=== PATIENT | female | born 1940 | race Caucasian/White ===

== ENCOUNTER → 2017-07-07 | Outpatient (CLI) | payer OTHER ==
[~2017-07-07] MED LIST: AMIO200T PO; ASPI81 PO; BUTATAB6 PO; DIPH25CA PO; DIVA250T PO; DOCU1CAP39 PO; FERR325T20 PO; FURO1TAB60 PO; HYDR-3516 PO; IOHEXOL 350 MG/ML 10 ML VIAL (for RAD DIAG) IVCONTRAST ONE; LORA0.5T PO; MEDR4PAK PO; METO25TA3 PO; PANT40TA3 PO; PLAV75TA29 PO; POTA-163 PO; THERM PO; UMEC1AER INH
[2017-07-07 08:38] LABS: BLOOD, URINE SMALL (NEG); GLUCOSE,URINE NEG (NEG); HYALINE CAST, URINE 1 /lpf (RARE); KETONE, URINE NEG (NEG); NITRITE,URINE NEG (NEG); SQUAMOUS EPITHELIAL CELL URINE <1 /hpf (0-5); URINE COLOR LIGHT-YELLOW (YELLW/STRAW)
[2017-07-07 08:39] LABS: COMMENT (UR) CULTURE INDICATED; CULTURE IF INDICATED CULTURE INDICATED
[2017-07-07 09:00] LABS: BICARBONATE 27.6 MEQ/L (21.0-32.0); POTASSIUM 4.5 MEQ/L (3.5-5.1)
--- NOTE | 2017-07-07 10:11 | RADRPT ---
EXAM DATE/TIME: 07/07/2017 10:01 [facility] COMPARISON: No previous studies available for comparison. INDICATIONS : Evaluate for pneumonia, pneumothorax or communicable disease. Pre-op for Aortic valve replacement. MEDICAL HISTORY : None. SURGICAL HISTORY : None. ENCOUNTER: Initial ACUITY: 1 day PAIN SCORE: 0/10 LOCATION: Bilateral chest FINDINGS: A PA and lateral view of the chest shows the heart to be normal in size. Pulmonary vessels are unrema rkable. No acute infiltrate or effusion. Prior cement augmentation involving 3 thoracic vertebral bod ies. CONCLUSION: No acute disease. Avi Holt Jr., MD on July 07, 2017 at 10:08 Board Certified Radiologist. This report was verified electronically.
--- NOTE | 2017-07-07 11:19 | RADRPT ---
EXAM DATE/TIME: 07/07/2017 09:41 [facility] COMPARISON: No previous studies available for comparison. INDICATIONS : Pre-op for TAVR. IV CONTRAST: 100 cc Omnipaque 350 (iohexol) IV RADIATION DOSE: 42.77 CTDIvol (mGy) MEDICAL HISTORY : Cardiovascular disease. SURGICAL HISTORY : None. ENCOUNTER: Initial ACUITY: 1 day PAIN SCALE: 0/10 LOCATION: chest TECHNIQUE: Volumetric scanning was performed using a multi-row detector CT scanner. The data was post processed with a variety of visualization algorithms including full volume maximum intensity projection, multi -planar sliding thin slab reformation, curved planar reformation, and surface rendering techniques. Using automated exposure control and adjustment of the mA and/or kV according to patient size, radiat ion dose was kept as low as reasonably achievable to obtain optimal diagnostic quality images. DIC OM format image data is available electronically for review and comparison. FINDINGS: CARDIAC: The coronary system is right dominant. Calcified atherosclerotic plaque is seen involving the origin of both the right main coronary artery and left main coronary artery. Calcified plaque is seen invol ving the origin of the left anterior descending. Scattered calcified plaque throughout the remaining vessels. There is no pericardial effusion AORTIC ROOT/VALVE: 2 cusps are evident with significant calcifications. The aortic root measures 2.6 x 2.4 cm. Mid thoracic aorta measures 2.8 x 2.8 cm with mild scattered calcifications. THORACIC AORTA: Origin of the great vessels is normal. No evidence of aneurysm, mural thrombus, dissection, or steno sis. Scattered calcified atherosclerotic plaque throughout the aortic arch and origin of the arch ves sels. ABDOMINAL AORTA: No evidence of aneurysm, mural thrombus, dissection, or stenosis. Diffuse calcified and noncalcified atheromatous plaque is observed. This generates an irregular luminal contour. There is an area 40% st enosis involving both common iliac artery origin secondary to eccentric calcified plaque. CELIAC ARTERY: Celiac artery is widely patent. SMA: Superior mesenteric artery is widely patent. RIGHT RENAL ARTERY: Right renal artery is widely patent. LEFT RENAL ARTERY: Left renal artery is widely patent. RIGHT COMMON ILIAC: No evidence of aneurysm, mural thrombus, dissection, or stenosis. The common femoral measures 4 mm. This is secondary to eccentric calcified plaque. LEFT COMMON ILIAC: No evidence of aneurysm, mural thrombus, dissection, or stenosis. The common femoral measures 4 mm. This is secondary to eccentric calcified plaque. THORAX: Heart is normal in size. No pericardial effusion. No adenopathy. Pulmonary arteries are normal in abby iber. Diffuse emphysematous changes. ABDOMEN: Abdominal visceral structures are unremarkable. PELVIS: Pelvic visceral structures are unremarkable. CONCLUSION: 1. Calcified bicuspid aortic valve. 2. Coronary artery atherosclerotic ulcerations. 3. 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 4. Emphysematous changes. Avi Holt Jr., MD on July 07, 2017 at 11:03 Board Certified Radiologist. This report was verified electronically.
--- NOTE | 2017-07-07 11:52 | RADRPT ---
EXAM DATE/TIME: 07/07/2017 10:19 [facility] COMPARISON: No previous studies available for comparison. INDICATIONS : Pre op aortic valve replacement surgery. MEDICAL HISTORY : Seizures. SURGICAL HISTORY : Appendectomy. Back surgery. Cardiac catheterization. ENCOUNTER: Initial ACUITY: 1 day PAIN SCORE: 0/10 LOCATION: Bilateral neck PEAK SYSTOLIC VELOCITIES (cm/sec): ICA/CCA RATIO: Right: 1.5 Left: 1.5 ICA: Right: 107 Left: 128 CCA: Right: 72 Left: 88 ECA: Right: 72 Left: 88 VERTEBRAL: Right: 65 antegrade Left: 95 antegrade Elevated flow velocities and ICA/CCA ratios have been found to correlate with increased degrees of vessel stenosis, calculated as percentage of diameter relative to a normal segment of distal ICA/CCA FINDINGS: RIGHT CAROTID: There is intimal thickening throughout the common carotid artery with mild calcified and noncalcified plaque in the carotid bulb.. LEFT CAROTID: There is intimal thickening throughout the common carotid artery with moderate calcified and noncalci fied plaque in the carotid bulb and proximal internal carotid artery. VERTEBRAL ARTERIES: Antegrade flow is seen in both vertebral arteries. MISCELLANEOUS: None. CONCLUSION: 1. Moderate calcified plaque in the left carotid bulb and proximal left internal carotid artery. [facility] measurements suggest between 50-69% stenosis. 2. Mild plaque in the right carotid bulb with less than 50% stenosis in the right internal carotid ar christin. Noah Benitez MD on July 07, 2017 at 11:47 Board Certified Radiologist. This report was verified electronically.
[2017-07-07 17:00] LABS: AUTOMATED NEUTROPHIL # 3.2 TH/MM3 (1.8-7.7); BASOPHIL # 0.1 TH/MM3 (0-0.2); EOSINOPHIL # 0.2 TH/MM3 (0-0.4); HEMATOCRIT 40.3 % (35.0-46.0); HEMO FLAGS DIFF FINAL; LYMPH % 33.3 % (9.0-44.0); MEAN CORPUSCULAR HEMOGLOBIN 27.9 PG (27.0-34.0); MEAN CORPUSCULAR HGB CONC 32.9 % (32.0-36.0); MONO % 9.7 % (0.0-8.0); PLATELET COUNT 221 TH/MM3 (150-450); RED BLOOD COUNT 4.75 MIL/MM3 (4.00-5.30); RED CELL DISTRIBUTION WIDTH 12.8 % (11.6-17.2); WHITE BLOOD COUNT 6.1 TH/MM3 (4.0-11.0)
[2017-07-07 17:07] LABS: ALT (GPT) 23 U/L (10-53); AST (GOT) 20 U/L (15-37); BICARBONATE 27.4 MEQ/L (21.0-32.0); BLOOD UREA NITROGEN 7 MG/DL (7-18); GLOMERULAR FILTRATION RATE 73 ML/MIN (>89); INTERNATIONAL NORMALIZED RATIO 0.9 RATIO; PROTHROMBIN TIME - PATIENT 10.3 SEC (9.8-11.6)
[2017-07-07 18:21] LABS: ALKALINE PHOSPHATASE 92 U/L (45-117); ANION GAP 9 MEQ/L (5-15); CHLORIDE 97 MEQ/L (98-107); POTASSIUM 4.4 MEQ/L (3.5-5.1); SODIUM (NA) 133 MEQ/L (136-145); TOTAL BILIRUBIN ADULT 0.3 MG/DL (0.2-1.0)
--- NOTE | 2017-07-13 10:56 | RSPPFT ---
DATE OF PROCEDURE: 07/07/17 COMMENTS: The forced vital capacity is borderline normal. The FEV1 and FEF 25-75 are both markedly reduced. The FEV1/FVC ratio is reduced. IMPRESSION: This is compatible with severe, large and small airways, obstructive lung disease.
== END ==
LOC: HRSP 07:36
PROVIDERS: ATTEND Radiology Vascular & Interventional Radiology
DX: I35.0 Nonrheumatic aortic (valve) stenosis (principal); R82.99 Other abnormal findings in urine; J44.9 Chronic obstructive pulmonary disease, unspecified
CPT/HCPCS: 71020; 74174; 80053; 81001; 82040; 85025; 85610; 86850; 86900; 86901; 87086; 87641; 93880; 94010; Q9967; 80048

== ENCOUNTER 2017-07-24 05:31 | Inpatient (IN) | payer OTHER, MEDICARE ==
[2017-07-24] VITALS (8 sets, daily range): BP systolic 93–118; BP diastolic 41–47; PULSE 77–118; RESP 12–18; TEMP 97.6–98.5; O2SAT 97–99
[~2017-07-24] VITALS: Ht 149.9 cm; Wt 58.6 kg
[2017-07-24] MEDS ORDERED: UMEC1AER INH (06:15)
[2017-07-24] MEDS ORDERED: BUTATAB6 PO (06:15)
[2017-07-24] MEDS ORDERED: DIVA250T PO (06:15)
[2017-07-24] MEDS ORDERED: LORA0.5T PO (06:15)
[2017-07-24] MEDS ORDERED: LACTATED RINGER'S 1000 ML IV PRN (06:15)
[2017-07-24] MEDS ORDERED: POVIDONE IODINE 5% (ANTISEPSIS KIT) 4 APPLICATIONS EACH NARE PRN (06:15)
[2017-07-24] MEDS ORDERED: CHLORHEXIDINE GLUCONATE 2 % 1 PACK (2 CLOTHS) TOPICAL PRN (06:15)
[2017-07-24] MEDS ORDERED: METOPROLOL TARTRATE 25 MG TAB PO PRN (06:15)
[2017-07-24] MEDS ORDERED: PANT40TA3 PO (06:15)
[2017-07-24] MEDS ORDERED: SODIUM CHLORID 0.9% 500 ML IV PRN (06:15)
[2017-07-24] MEDS ORDERED: VANCOMYCIN 1000 MG/NS 250 ML IV SCH ×2 (06:30)
[2017-07-24] MEDS ORDERED: METOPROLOL TARTRATE 25 MG TAB PO SCH (06:30)
[2017-07-24] MEDS ORDERED: SODIUM CHLORIDE 0.9% FLUSH 10 ML FLUSH IV FLUSH PRN ×3 (06:30→13:45)
[2017-07-24] MEDS ORDERED: INSULIN REGULAR 100 UNITS in NS 100 ML IV PRN (06:30)
[2017-07-24] MEDS ORDERED: CHLORHEXIDINE GLUCONATE 4% SOLN 120 ML BTL TOPICAL SCH (06:30)
[2017-07-24] MEDS ORDERED: VANCOMYCIN 1000 MG in NS IRR BTL 1000 ML IRRIGATION SCH (06:30)
[2017-07-24] MEDS ORDERED: DEXTROSE 50% IN WATER 50 ML VIAL(D50) IV PUSH PRN ×2 (06:30→13:45)
[2017-07-24] MEDS ORDERED: SUGAMMADEX SODIUM 200 MG/2 ML VIAL IV PUSH ONE ×2 (06:49)
[2017-07-24] MEDS ORDERED: DEXMEDETOMIDINE HCL 200 MCG/2 ML VIAL ONE (06:49)
[2017-07-24] MEDS ORDERED: HEPARIN SODIUM - SQ 10,000 UNITS/ML VIAL ONE (07:29)
[2017-07-24] MEDS ORDERED: VANCOMYCIN HCL 1000 MG VIAL ONE ×2 (07:30→13:05)
[2017-07-24] MEDS ORDERED: CUSTODIOL HTK IRR SOLN 2,000 ML ONE (08:24)
[2017-07-24] MEDS ORDERED: ALBUMIN 25% INJ 50 ML IV ONE (08:31)
[2017-07-24] MEDS ORDERED: POTASSIUM CHLORIDE 40 MEQ/20 ML VIAL ONE (08:32)
[2017-07-24] MEDS ORDERED: MANNITOL INJ 100 ML ONE (08:32)
[2017-07-24] MEDS ORDERED: SODIUM BICARBONATE 8.4% INJ 100 ML ONE (08:33)
[2017-07-24] MEDS ORDERED: CALCIUM CHLORIDE 10% SOLN 1 GRAM/10 ML SYR ONE (08:33)
[2017-07-24] MEDS ORDERED: HEPARIN SODIUM - IV 10,000 UNITS/10 ML VIAL ONE (08:33)
[2017-07-24] MEDS ORDERED: LIDOCAINE HCL 2% 100 MG/5 ML SYRINGE ONE (08:34)
[2017-07-24] MEDS ORDERED: BUPIVACAINE LIPOSO PF 1.3% INJ 20 ML, SODIUM CHLORIDE 0.9% INJ 20 ML, DEXAMETHASONE INJ... SCH ×4 (08:45)
[2017-07-24] MEDS: MUPIROCIN 2% OINT 22 GM TUBE EACH NARE SCH ×2 (09:00→20:43)
[2017-07-24] MEDS ORDERED: SODIUM BICARBONATE 8.4% SOLN 50 MEQ/50 ML VIAL IV PUSH PRN ×2 (13:45)
[2017-07-24] MEDS ORDERED: ACETAMINOPHEN 325 MG TAB PO PRN (13:45)
[2017-07-24] MEDS ORDERED: RESP: RACEPINEPHRINE 2.25% 0.5 ML NEB NEB PRN (13:45)
[2017-07-24] MEDS ORDERED: CALCIUM CHLORIDE INJ 1 GM in SODIUM CHLORIDE 0.9% INJ 100 ML IV PRN (13:45)
[2017-07-24] MEDS ORDERED: MEPERIDINE HCL 25 MG/ML VIAL IV PUSH PRN (13:45)
[2017-07-24] MEDS ORDERED: MAGNESIUM SULFATE INJ 2 GM in SODIUM CHLORIDE 0.9% INJ 100 ML IV PRN (13:45)
[2017-07-24] MEDS ORDERED: CLEVIDIPINE INJ 50 ML IV PRN (13:45)
[2017-07-24] MEDS ORDERED: ONDANSETRON HCL 4 MG/2 ML VIAL IV PUSH PRN (13:45)
[2017-07-24] MEDS ORDERED: METOPROLOL TARTRATE 5 MG/5 ML VIAL IV PUSH PRN (13:45)
[2017-07-24] MEDS ORDERED: DOBUTamine PREMIX DRIP 250 ML IV SCH (13:45)
[2017-07-24] MEDS ORDERED: ACETAMINOPHEN/HYDROcodone 325 MG/5 MG TAB PO PRN (13:45)
[2017-07-24] MEDS ORDERED: hydrALAZINE HCL 20 MG/ML VIAL IV PUSH PRN (13:45)
[2017-07-24] MEDS ORDERED: LACTATED RINGER'S 1000 ML INJ 500 ML IV PRN (13:45)
[2017-07-24] MEDS ORDERED: MORPHINE SULFATE 4 MG/ML INJ IV PUSH PRN (13:45)
[2017-07-24] MEDS ORDERED: Post-op Orders (for Pharmacy) MISC OTHER ONE (13:45)
[2017-07-24] MEDS ORDERED: DEXMEDETOMIDINE INJ 200 MCG in SODIUM CHLORIDE 0.9% INJ 50 ML IV PRN (13:45)
[2017-07-24] MEDS ORDERED: PHENYLEPHRINE INJ 40 MG in DEXTROSE 5% IN WATE 500 ML INJ 496 ML IV PRN ×2 (13:45)
[2017-07-24] MEDS ORDERED: DOPamine INJ PREMIX 500 ML IV PRN (13:45)
[2017-07-24] MEDS ORDERED: CALCIUM CHLORIDE 10% 1 GRAM/10 ML VIAL IV PUSH PRN (13:45)
[2017-07-24] MEDS ORDERED: POTASSIUM CHLORIDE 20 MEQ CONTROLLED RELEASE TAB PO PRN ×2 (13:45)
[2017-07-24] MEDS ORDERED: INSULIN REGULAR (IV INFUSION) 100 UNITS in SODIUM CHLORIDE 0.9% INJ 99 ML IV PRN (13:45)
[2017-07-24] MEDS ORDERED: ACETAMINOPHEN 650 MG SUPP RECTAL PRN (13:45)
[2017-07-24] MEDS ORDERED: POTASSIUM CHLOR 20 MEQ PREMIX 100 ML IV PRN ×2 (13:45)
[2017-07-24] MEDS ORDERED: NITROGLYCERIN-D5W 50 MG/250 ML 250 ML IV PRN (13:45)
[2017-07-24] MEDS ORDERED: ALBUMIN 5% INJ 250 ML IV PRN (13:45)
[2017-07-24] MEDS ORDERED: DEXTROSE 50% IN WATER 50 ML SYRINGE ONE (14:01)
--- NOTE | 2017-07-24 14:57 | PD.CAR.PN ---
CVT Progress Note Subjective/Hospital Course: 76/ female hx of 10month h/o progressive SOB with minimal exertion. Echo revealed sever with rheumatic appearing leaflets ( LEATHA 0.57) , Cardiac cath revealed normal coronaries PMH: anemia, anxiety, carotid bruit, fatigue, GERD, migraines Objective: Vital Signs Date Time Temp Pulse Resp B/P (MAP) Pulse Ox O2 Delivery O2 Flow Rate FiO2 07/24/17 14:15 99 50 07/24/17 06:00 97.9 70 18 152/66 (94) 99 (1) Anxiety (2) Chronic anemia (3) S/P AVR (aortic valve replacement) (4) Severe aortic valve stenosis Rosa M Snow Jul 24, 2017 14:57
--- NOTE | 2017-07-24 15:00 | HHI.FF ---
Face to Face Verification Diagnosis: (1) Anxiety (2) Chronic anemia (3) Severe aortic valve stenosis (4) S/P AVR (aortic valve replacement) Occupational Therapy Order: Evaluate and Treat Home Health Nursing Order: Signs/symptoms of disease process Medication education-adverse effect Wound care and dressing changes Nursing assessment with vital signs Instructions: Heart and Vascular Surgery patients *Special attention to sternal dressing Mandatory frequency Assess and evaluation, 4 days in a row The next week 3X week 2 times a week for 4 weeks 1 time a week for 5 weeks Schedule Heart and Vascular patients for full 60 day certification period Initial visit Review Open Heart Surgery Discharge Instructions (Sternal precautions, Activity, Elastic hose, Incision care, Driving, Incentive spirometry, Smoking, [place], Work and other) Need Betadine to paint incision Medication reconciliation Importance of follow up care/ check on appointments Make calendar record temperature daily When to call [facility] at Home nurse, review instructions, phone list Incentive Spirometry, demonstration Visit 1- Begin discharge instruction for patient family and/ or caregiver using teach back method- Signs and symptoms of infection Disease characteristics Medicines and side effects Foods and nutrition/ appetite Infection control/ hand washing/ hygiene Visit 2- Continue teaching Discharge instructions- include additional information on smoking cessation , sternal dressing (sternal vac) Visit 3- Continue teaching- Cough and deep breathing, incision monitoring. Choose my plate Visit 4- Continue teaching- Discuss limitations Discuss how they are feeling Discuss progress toward goals Remaining visits- continue teaching and monitoring Incentive spirometry Q1 hr x 10, while awake, also use acapella device hourly whole awake Chest wall Precautions: NO pushing or pulling, ( pt must use chest pillow to support chest with all activities and with coughing Daily incision care: ok to shower daily, no tub bath. Wash all incisions with liquid dial soap, clean wash cloth to each site, rinse and pat dry. Observe for any signs of infection, such as drainage which is dark yellow, castillo, green or foul smelling. Immediately report to the surgeon any drainage from the chest incision, or legs, and for any abnormal drainage from the chest tube sites. Notify surgeon if any temp >101.5 degrees F. When specialty dressing removed/ or if you do not have one, continue to shower daily as above, then rinse and pat incision dry and paint with betadine daily x 5 days. Allow steri strips to fall off if you have any. Avoid lotions, creams, salves, oils, etc. for the first month F/U appointment: as per MO instructions: PCP in 2 weeks, CV surgeon 2 weeks, [employer] Officer 3-4 weeks For any questions regarding incisions/ dressing / meds / post op care or above Symptoms, Thursday 8am-5pm Heart & Vascular Surgery Office ( Dr. Richey & Dr. Gandhi), After Hours / Nights (5pm -8am) Weekends and Holidays Please call [facility] Cardiac Intermediate [facility] Unit (C[facility]) Charge Nurse I have seen patient Ewa Prince on 07/24/17. My clinical findings support the need for the requested home health care services because: Deconditioned w/ increased weakness I certify that my clinical findings support that this patient is homebound because: Post-op weakness Rosa M Snow Jul 24, 2017 14:59
--- NOTE | 2017-07-24 15:09 | RADRPT ---
EXAM DATE/TIME: 07/24/2017 14:31 [facility] COMPARISON: CHEST PA & LAT, July 07, 2017, 10:01. INDICATIONS : Post CABG. MEDICAL HISTORY : Seizures. SURGICAL HISTORY : Appendectomy. Back surgery. Cardiac catheterization. ENCOUNTER: Initial ACUITY: 1 day PAIN SCORE: Non-responsive. LOCATION: Bilateral chest FINDINGS: A single portable frontal view the chest shows interval median sternotomy. Ligated pacer leads overli e the left chest. Endotracheal tube tip is 3 cm proximal to the august. Nasogastric tube tip just pas t the GE junction. Subxiphoid thoracostomy tube. Right-sided internal jugular vein [place] catheter with tip at the cavoatrial junction. No pneumothoraces. No infiltrates. Minimal atelectasis within t he left base. Heart is normal in size. CONCLUSION: Interval median sternotomy with life-support lines. Minimal left basilar atelectasis. Avi Holt Jr., MD on July 24, 2017 at 15:05 Board Certified Radiologist. This report was verified electronically.
--- NOTE | 2017-07-24 15:34 | PD.OP ---
cc: Patti Richey MD; Enrrique Landa MD Operative Report Date of Surgery: Jul 24, 2017 Preoperative Diagnosis: Postoperative Diagnosis: Procedure: 1. Mini-Sternotomy 2. Aortic Valve Replacement with a 21mm Mosaic Cinch II Tissue valve 3. Right Femoral Vein Cannulation for Bypass Surgeon: Patti Richey Nick Setter(s): Willem Mandel Operation and Findings: PREOPERATIVE DIAGNOSES 1. Severe Symptomatic Aortic Stenosis. 2. Mild Aortic Insufficiency 3. Severe Peripheral Vascular Disease 4. Calcified Aorta POSTOPERATIVE DIAGNOSES Same SURGICAL PROCEDURE 1. Mini-Sternotomy 2. Aortic Valve Replacement with a 21mm Mosaic Cinch II Tissue valve 3. Right Femoral Vein Cannulation for Bypass SENIOR ASIC DESIGN ENGINEER NABOR Griffiths ANESTHESIA General endotracheal. APPLIQUER ZIGZAG Yuli Cade CRNA, Seferino Oconnor MD PREPARATION ChloraPrep. NEEDLE, SPONGE AND INSTRUMENT COUNT Correct. DRAINS One 32-Icelandic mediastinal tube. COMPLICATIONS None. INDICATIONS The patient is an 76-year-old lady with severe aortic stenosis, presenting for surgical correction of the above pathology. DESCRIPTION OF PROCEDURE The patient was brought to the operating room and placed supine on the OR table. Following the induction of adequate general endotracheal anesthesia and placement of appropriate monitoring devices, the patient was then prepped and draped in the standard sterile fashion. A 7 cm incision was made overlying the manubrium and the superior aspect of the sternum. Gregory-sternotomy was performed upto the 3rd ICS and the sternotomy T-ed at that point. The pericardium was divided in the midline and the cradle created. The patient was systemically heparinized and anticoagulation monitored by serial ACT measurements. Then 2 pursestring sutures of 2-0 Ethibond were placed on the aorta proximal to the takeoff of the innominate artery. A snall incision was made over the right femoral vein following identification of its course by ultrasound. The dissection was carried down to the vein and a purse-string suture of 5-0 Prolene placed on the vein. Using standard seldinger technique, the right Femoral vein was cannulated and under YASMINE guidance, the tip of the cannula was confirmed to be in the SVC. This was connected to the venous circuit. At this point, aortic cannula was introduced and attached to the arterial component of the bypass circuit. Antegrade cardioplegia cannula and a left ventricular vent, through the right superior pulmonary vein, were also placed. The patient was placed on cardiopulmonary bypass and core cooling initiated to a temperature of 32 degrees centigrade. The crossclamp was applied and 1.2 L of cardioplegia solution (Snf HTK) given in an antegrade fashion in addition to topical cooling with slushed saline. Upon achieving adequate diastolic arrest of the heart a transverse aortotomy was performed. The aortic valve was then excised and sent for microbiologic analysis. The valve and annulus were noted to be very heavily calcified. Circumferential decalcification was performed. The ascending aorta was also noted to be heavily calcified circumferentially at the level of the sinotubular junction. Care was taken to avoid disrupting aortic calcifications and plaques. Horizontal mattress sutures of interrupted 2-0 Ethibond were placed on the aortic annulus with pledgets on the ventricular side. After adequate sizing, a 21 mm Mosaic Cinch II tissue valve was brought in the surgical field and the sutures passed through the skirt and the valve was situated using the Cor-Knot device. This appeared to be a good fit. Gradual rewarming was initiated and the aortotomy closed in 2 layers. This was with 4-0 Prolene; the 1st layer being horizontal mattress, the 2nd layer being running baseball stitch. The cross clamp was removed and upon achieving normothermic cardiac activity, transesophageal echocardiography revealed a well-situated aortic prosthesis with no evidence of perivalvular leak and no aortic stenosis or aortic regurgitation. Protamine was administered. Decannulation was performed and all sites were inspected for hemostasis. At this point the closure was undertaken. The pericardium was reapproximated in the midline. A 32 Fr chest tube was placed and the sternum was reapproximated using stainless steel sternal wires. The musculo-fascial layer was then closed in 3 layers. The groin incision was similarly closed in 3 layers. The patient tolerated the procedure well and was transferred to open heart recovery in stable condition. Patti Richey MD Jul 24, 2017 15:34
--- NOTE | 2017-07-24 15:59 | EKG ---
Date Performed: 07/24/2017 Time Performed: 06:40:45 PTAGE: 76 years EKG: Sinus rhythm WITH SINUS ARRHYTHMIA NORMAL ECG NO PREVIOUS TRACING DOCTOR: Erin Garcia Interpretating Date/Time 07/24/2017 15:58:35
[2017-07-24] MEDS: RESP: ALBUTEROL 2.5 MG/IPRATROPIUM 0.5 MG NEB (SCH) NEB ×2 (16:45→20:22)
[2017-07-24] MEDS: ACETAMINOPHEN 1000 MG/100 ML 100 ML IV SCH ×2 (17:00→20:00)
[2017-07-24] MEDS: VANCOMYCIN INJ 1,000 MG in SODIUM CHLOR 0.9% 250 ML INJ 250 ML IV SCH (17:01)
[2017-07-24] MEDS: POTASSIUM CHLOR 20 MEQ PREMIX 100 ML IV PRN (18:33)
[2017-07-24] MEDS: KETOROLAC TROMETHAMINE 30 MG/ML (IVP) VIAL IV PUSH PRN (18:45)
[2017-07-24] MEDS: AMIODARONE 200 MG TAB PO SCH (20:09)
[2017-07-24] MEDS: SODIUM CHLORIDE 0.9% FLUSH 10 ML FLUSH IV FLUSH SCH (20:43)
[2017-07-24] MEDS ORDERED: LIDOCAINE/D5W 2000 MG/500 ML 500 ML IV SCH (22:45)
[2017-07-25] VITALS (11 sets, daily range): BP systolic 95–144; BP diastolic 39–96; PULSE 78–114; RESP 16–18; TEMP 97.5–98.5; O2SAT 91–99
[2017-07-25] MEDS: ACETAMINOPHEN 1000 MG/100 ML 100 ML IV SCH ×2 (02:00→08:11)
[2017-07-25] MEDS: VANCOMYCIN INJ 1,000 MG in SODIUM CHLOR 0.9% 250 ML INJ 250 ML IV SCH ×2 (03:08→14:13)
[2017-07-25] MEDS: RESP: ALBUTEROL 2.5 MG/IPRATROPIUM 0.5 MG NEB (SCH) NEB ×2 (04:26→09:35)
[2017-07-25 05:00] LABS: HEMATOCRIT 29.5 % (35.0-46.0); MEAN CELL VOLUME 85.9 FL (80.0-100.0); MEAN CORPUSCULAR HEMOGLOBIN 29.6 PG (27.0-34.0); MEAN CORPUSCULAR HGB CONC 34.4 % (32.0-36.0); PLATELET COUNT 131 TH/MM3 (150-450); RED BLOOD COUNT 3.43 MIL/MM3 (4.00-5.30); RED CELL DISTRIBUTION WIDTH 13.8 % (11.6-17.2); REVIEW FLAG FINAL; WHITE BLOOD COUNT 19.2 TH/MM3 (4.0-11.0)
[2017-07-25 05:14] LABS: BICARBONATE 24.7 MEQ/L (21.0-32.0); MAGNESIUM 1.9 MG/DL (1.5-2.5)
[2017-07-25] MEDS: PANTOPRAZOLE SOD 40 MG DELAYED RELEASE TAB PO SCH (06:00)
--- NOTE | 2017-07-25 06:43 | RADRPT ---
EXAM DATE/TIME: 07/25/2017 04:13 [facility] COMPARISON: CHEST SINGLE AP, July 24, 2017, 14:31. INDICATIONS : Shortness of breath, possible pneumothorax. MEDICAL HISTORY : Seizures SURGICAL HISTORY : Appendectomy. CABG. Cardiac cath ENCOUNTER: Subsequent ACUITY: 2 days PAIN SCORE: Non-responsive. LOCATION: Bilateral chest FINDINGS: Portable AP view of the chest demonstrates a normal-sized cardiac silhouette with calcification of th e aorta. Median sternotomy wires are present. Residual epicardial pacing wires remain present. Right IJ line and mediastinal drain are present. There is a small right apical pneumothorax. Mild bibasilar airspace opacity remains present.. CONCLUSION: 1. There is a new small right apical pneumothorax. 2. Bibasilar airspace opacity representing either atelectasis or consolidation. Noah Benitez MD on July 25, 2017 at 6:40 Board Certified Radiologist. This report was verified electronically.
[2017-07-25] MEDS: MUPIROCIN 2% OINT 22 GM TUBE EACH NARE SCH ×2 (09:00→20:45)
[2017-07-25] MEDS: ASPIRIN 81 MG CHEW TAB PO SCH (09:06)
[2017-07-25] MEDS: AMIODARONE 200 MG TAB PO SCH ×2 (09:06→20:47)
[2017-07-25] MEDS: CLOPIDOGREL 75 MG TAB PO SCH (09:06)
[2017-07-25] MEDS: ACETAMINOPHEN/HYDROcodone 325 MG/5 MG TAB PO PRN ×2 (09:07→18:18)
[2017-07-25] MEDS: MAGNESIUM SULFATE INJ 2 GM in SODIUM CHLORIDE 0.9% INJ 100 ML IV PRN (09:07)
[2017-07-25] MEDS: SODIUM CHLORIDE 0.9% FLUSH 10 ML FLUSH IV FLUSH SCH ×2 (09:07→20:46)
[2017-07-25] MEDS ORDERED: SOD PHOSPHATE/SOD BIPHOSPHATE (ADULT) ENEMA 133ML RECTAL PRN (11:15)
[2017-07-25] MEDS ORDERED: BISACODYL 10 MG SUPP RECTAL PRN (11:15)
[2017-07-25] MEDS ORDERED: GLUCAGON 1 MG/ML VIAL OTHER PRN (11:15)
--- NOTE | 2017-07-25 12:14 | PD.CAR.PN ---
CVT Progress Note CVT: POD #: 1 Subjective/Hospital Course: 76/ female hx of 10month h/o progressive SOB with minimal exertion. Echo revealed sever with rheumatic appearing leaflets ( LEATHA 0.57) , Cardiac cath revealed normal coronaries PMH: anemia, anxiety, carotid bruit, fatigue, GERD, migraines 07/25/17 Doing well, no complaints Objective: Vital Signs Date Time Temp Pulse Resp B/P (MAP) Pulse Ox O2 Delivery O2 Flow Rate FiO2 07/25/17 11:11 97.6 89 16 103/96 (98) 91 Arterial Line 07/25/17 10:10 16 07/25/17 09:35 99 Nasal Cannula 2.00 07/25/17 08:52 18 07/25/17 08:04 97 Nasal Cannula 2.00 07/25/17 07:42 97.5 94 18 125/46 (72) 99 101/46 (64) 07/25/17 07:41 78 07/25/17 05:09 18 07/25/17 04:26 98 Nasal Cannula 2.00 07/25/17 04:00 97 Nasal Cannula 2.00 07/25/17 03:00 98.2 81 18 107/45 (65) 99 07/25/17 00:00 99 Nasal Cannula 3.00 07/24/17 23:00 80 07/24/17 23:00 97.9 77 18 93/42 (59) 99 106/41 (62) 07/24/17 22:46 78 100/40 07/24/17 20:22 98 Nasal Cannula 3.00 07/24/17 20:00 99 Nasal Cannula 3.00 07/24/17 19:45 18 07/24/17 19:00 97.8 82 16 103/47 (65) 99 110/41 (64) 07/24/17 16:30 99 Nasal Cannula 3 07/24/17 16:05 40 07/24/17 15:00 78 07/24/17 15:00 Mechanical Ventilator 07/24/17 15:00 97.6 118 12 118/43 (68) 97 07/24/17 15:00 50 07/24/17 14:45 99 40 07/24/17 14:38 98.5 07/24/17 14:15 99 50 Labs: Laboratory Tests Test 07/25/17 04:15 White Blood Count 19.2 TH/MM3 (4.0-11.0) Red Blood Count 3.43 MIL/MM3 (4.00-5.30) Hemoglobin 10.1 GM/DL (11.6-15.3) Hematocrit 29.5 % (35.0-46.0) Mean Corpuscular Volume 85.9 FL (80.0-100.0) Mean Corpuscular Hemoglobin 29.6 PG (27.0-34.0) Mean Corpuscular Hemoglobin Concent 34.4 % (32.0-36.0) Red Cell Distribution Width 13.8 % (11.6-17.2) Platelet Count 131 TH/MM3 (150-450) Mean Platelet Volume 7.6 FL (7.0-11.0) Blood Urea Nitrogen 19 MG/DL (7-18) Creatinine 0.46 MG/DL (0.50-1.00) Random Glucose 107 MG/DL (74-106) Calcium Level 7.6 MG/DL (8.5-10.1) Magnesium Level 1.9 MG/DL (1.5-2.5) Sodium Level 140 MEQ/L (136-145) Potassium Level 4.0 MEQ/L (3.5-5.1) Chloride Level 108 MEQ/L (98-107) Carbon Dioxide Level 24.7 MEQ/L (21.0-32.0) Anion Gap 7 MEQ/L (5-15) Estimat Glomerular Filtration Rate 132 ML/MIN (>89) Result Diagram: 07/25/17 0415 07/25/17 0415 Imaging: Last 24 hours Impressions Chest X-Ray 07/25/17 0500 Signed Impressions: Service Date/Time: Tuesday, July 25, 2017 04:13 - CONCLUSION: 1. There is a new small right apical pneumothorax. 2. Bibasilar airspace opacity representing either atelectasis or consolidation. Noah Benitez MD Cardiovascular: RRR Telemetry: NSR Pulmonary: Decreased BS bilat GI/: NABS, NT Incision: dry and intact CT: ~300ml since OR Plan: D/C lidocaine drip No BB secondary to low BP transfer to stepdown Remove Jerome Advance diet Encourage ambulation, up to chair Continue chest tubes (1) Anxiety (2) Chronic anemia (3) S/P AVR (aortic valve replacement) (4) Severe aortic valve stenosis Caterina Gandhi MD Jul 25, 2017 12:14
[2017-07-25] MEDS: MAGNESIUM SULFATE 1 GM PREMIX 100 ML IV SCH (12:43)
[2017-07-25] MEDS ORDERED: PANTOPRAZOLE SOD 40 MG DELAYED RELEASE TAB PO ONE (13:15)
[2017-07-25] MEDS: INSULIN ASPART SUPPLEMENTAL SCALE SQ SCH ×3 (14:00→22:00)
[2017-07-25] MEDS: RESP: ALBUTEROL 2.5 MG/IPRATROPIUM 0.5 MG NEB (PRN) NEB (18:10)
[2017-07-25] MEDS: SENNOSIDES 8.6 MG TAB PO SCH (20:47)
[2017-07-25] MEDS: DOCUSATE SODIUM 100 MG CAP PO SCH (20:47)
[2017-07-26] VITALS (11 sets, daily range): BP systolic 105–131; BP diastolic 47–57; PULSE 86–156; RESP 16–22; TEMP 97.6–100.6; O2SAT 95–100
[2017-07-26] MEDS: KETOROLAC TROMETHAMINE 30 MG/ML (IVP) VIAL IV PUSH PRN (00:16)
[2017-07-26] MEDS: INSULIN ASPART SUPPLEMENTAL SCALE SQ SCH ×6 (02:00→22:00)
[2017-07-26 05:24] LABS: AUTOMATED NEUTROPHIL # 8.2 TH/MM3 (1.8-7.7); BASOPHIL % 0.4 % (0.0-2.0); EOSINOPHIL % 0.2 % (0.0-4.0); HEMATOCRIT 25.4 % (35.0-46.0); LYMPH % 14.7 % (9.0-44.0); LYMPHOCYTE # 1.6 TH/MM3 (1.0-4.8); MEAN CELL VOLUME 85.9 FL (80.0-100.0); MEAN CORPUSCULAR HEMOGLOBIN 30.3 PG (27.0-34.0); MEAN CORPUSCULAR HGB CONC 35.2 % (32.0-36.0); NEUT % 75.7 % (16.0-70.0); PLATELET COUNT 54 TH/MM3 (150-450); RED BLOOD COUNT 2.96 MIL/MM3 (4.00-5.30); RED CELL DISTRIBUTION WIDTH 14.3 % (11.6-17.2); WHITE BLOOD COUNT 10.9 TH/MM3 (4.0-11.0)
[2017-07-26 05:26] LABS: HEMO FLAGS AUTO DIFF
[2017-07-26 05:36] LABS: BICARBONATE 26.5 MEQ/L (21.0-32.0); MAGNESIUM 2.4 MG/DL (1.5-2.5); POTASSIUM 4.3 MEQ/L (3.5-5.1)
[2017-07-26] MEDS: PANTOPRAZOLE SOD 40 MG DELAYED RELEASE TAB PO SCH (05:37)
[2017-07-26 06:08] LABS: SCAN/DIFF AUTO DIFF CONFIRMED
[2017-07-26] MEDS: MUPIROCIN 2% OINT 22 GM TUBE EACH NARE SCH ×2 (08:55→21:00)
[2017-07-26] MEDS: SODIUM CHLORIDE 0.9% FLUSH 10 ML FLUSH IV FLUSH SCH ×2 (08:56→21:00)
[2017-07-26] MEDS: POLYETHYLENE GLYCOL 17 GM PKG PO SCH (08:56)
[2017-07-26] MEDS: MAGNESIUM HYDROXIDE SUSP 30 ML CUP PO SCH (08:56)
[2017-07-26] MEDS: ASPIRIN 81 MG CHEW TAB PO SCH (08:56)
[2017-07-26] MEDS: AMIODARONE 200 MG TAB PO SCH ×2 (08:57→21:00)
[2017-07-26] MEDS: MULTIVITAMINS/MINERALS THERAPEUTIC TAB PO SCH (08:57)
[2017-07-26] MEDS: DOCUSATE SODIUM 100 MG CAP PO SCH ×2 (08:57→21:00)
[2017-07-26] MEDS: CLOPIDOGREL 75 MG TAB PO SCH (08:57)
[2017-07-26] MEDS: ACETAMINOPHEN/HYDROcodone 325 MG/5 MG TAB PO PRN (09:13)
--- NOTE | 2017-07-26 09:17 | PD.CAR.PN ---
CVT Progress Note CVT: POD #: 2 Subjective/Hospital Course: 76/ female hx of 10month h/o progressive SOB with minimal exertion. Echo revealed sever with rheumatic appearing leaflets ( LEATHA 0.57) , Cardiac cath revealed normal coronaries PMH: anemia, anxiety, carotid bruit, fatigue, GERD, migraines 07/25/17 Doing well, no complaints 07/26/17 c/o some dyspnea this morning No complaints currently Small air leak from chest tube Objective: Vital Signs Date Time Temp Pulse Resp B/P (MAP) Pulse Ox O2 Delivery O2 Flow Rate FiO2 07/26/17 08:11 96 Nasal Cannula 3.00 07/26/17 07:41 97.6 86 22 105/49 (67) 99 07/26/17 07:40 86 07/26/17 07:05 98 Nasal Cannula 4.00 07/26/17 04:43 96 Nasal Cannula 4.00 07/26/17 03:00 91 07/26/17 02:12 16 07/26/17 00:00 95 Nasal Cannula 4.00 07/25/17 23:00 106 07/25/17 23:00 98.5 99 16 110/47 (68) 97 07/25/17 21:09 96 Nasal Cannula 4.00 07/25/17 20:12 16 07/25/17 20:00 97 Nasal Cannula 4.00 07/25/17 19:00 97.9 114 18 144/59 (87) 95 07/25/17 16:01 97 Nasal Cannula 2.00 07/25/17 15:04 98.1 86 16 95/39 (57) 97 07/25/17 15:03 86 07/25/17 12:21 97 Nasal Cannula 2.00 07/25/17 11:11 97.6 89 16 103/96 (98) 91 Arterial Line 07/25/17 09:35 99 Nasal Cannula 2.00 Labs: Laboratory Tests Test 07/26/17 05:00 White Blood Count 10.9 TH/MM3 (4.0-11.0) Red Blood Count 2.96 MIL/MM3 (4.00-5.30) Hemoglobin 9.0 GM/DL (11.6-15.3) Hematocrit 25.4 % (35.0-46.0) Mean Corpuscular Volume 85.9 FL (80.0-100.0) Mean Corpuscular Hemoglobin 30.3 PG (27.0-34.0) Mean Corpuscular Hemoglobin Concent 35.2 % (32.0-36.0) Red Cell Distribution Width 14.3 % (11.6-17.2) Platelet Count 54 TH/MM3 (150-450) Mean Platelet Volume 8.0 FL (7.0-11.0) Neutrophils (%) (Auto) 75.7 % (16.0-70.0) Lymphocytes (%) (Auto) 14.7 % (9.0-44.0) Monocytes (%) (Auto) 9.0 % (0.0-8.0) Eosinophils (%) (Auto) 0.2 % (0.0-4.0) Basophils (%) (Auto) 0.4 % (0.0-2.0) Neutrophils # (Auto) 8.2 TH/MM3 (1.8-7.7) Lymphocytes # (Auto) 1.6 TH/MM3 (1.0-4.8) Monocytes # (Auto) 1.0 TH/MM3 (0-0.9) Eosinophils # (Auto) 0.0 TH/MM3 (0-0.4) Basophils # (Auto) 0.0 TH/MM3 (0-0.2) CBC Comment AUTO DIFF Differential Comment AUTO DIFF CONFIRMED Blood Urea Nitrogen 24 MG/DL (7-18) Creatinine 0.66 MG/DL (0.50-1.00) Random Glucose 74 MG/DL (74-106) Calcium Level 7.8 MG/DL (8.5-10.1) Magnesium Level 2.4 MG/DL (1.5-2.5) Sodium Level 137 MEQ/L (136-145) Potassium Level 4.3 MEQ/L (3.5-5.1) Chloride Level 104 MEQ/L (98-107) Carbon Dioxide Level 26.5 MEQ/L (21.0-32.0) Anion Gap 7 MEQ/L (5-15) Estimat Glomerular Filtration Rate 87 ML/MIN (>89) Result Diagram: 07/26/17 0500 07/26/17 0500 Cardiovascular: RRR Telemetry: NSR Pulmonary: Fee crackles GI/: NABS Incision: dry and intact CT: 70ml/12 hrs, small sir leak Plan: Continue chest tubes due to air leak No BB due to low BP Ambulate, up to chair Diurese (1) Anxiety (2) Chronic anemia (3) S/P AVR (aortic valve replacement) (4) Severe aortic valve stenosis Caterina Gandhi MD Jul 26, 2017 09:17
[2017-07-26] MEDS: RESP: ALBUTEROL 2.5 MG/IPRATROPIUM 0.5 MG NEB (PRN) NEB ×2 (12:21→20:58)
[2017-07-26] MEDS ORDERED: PROPOFOL 500 MG/50 ML INJ 0 ML ONE (13:33)
[2017-07-26] MEDS ORDERED: ROCURONIUM INJ 50 MG/5 ML VIAL ONE ×2 (13:34→13:35)
[2017-07-26] MEDS ORDERED: PROPOFOL 500 MG/50 ML INJ 50 ML ONE (13:36)
[2017-07-26 13:37] LABS: BLOOD GAS BASE EXCESS -1.7 mmol/L (-2-2); BLOOD GAS CARBOXYHEMOGLOBIN 1.3 % (0-4); BLOOD GAS HCO3 23 mmol/L (22-26); BLOOD GAS METHEMOGLOBIN 1.1 % (0-2); BLOOD GAS O2 HGB SATURATION 93 % (90-100); BLOOD GAS OXYGEN CONTENT 13.1 Vol % (12.0-20.0); BLOOD GAS PCO2 44 mmHg (38-42); BLOOD GAS PO2 77 mmHg (61-120); TEMP CORR TO 98.6
[2017-07-26 13:38] LABS: CRITICAL VALUE NO; DRAW SITE RT RADIAL; FIO2 50 %; LITER FLOW 6 L/M; NUMBER OF ARTERIAL PUNCTURES 1; OXYGEN DEVICE Venti Mask; STAT YES; ULNAR PULSE PRESENT
[2017-07-26] MEDS ORDERED: MIDAZOLAM HCL 2 MG/2 ML VIAL IV PUSH ONE (13:45)
--- NOTE | 2017-07-26 13:50 | RADRPT ---
EXAM DATE/TIME: 07/26/2017 13:23 [facility] COMPARISON: CHEST SINGLE AP, July 25, 2017, 4:13. INDICATIONS : Shortness of breath. MEDICAL HISTORY : Seizures. SURGICAL HISTORY : Appendectomy. CABG. Cardiac cath. ENCOUNTER: Initial ACUITY: 1 day PAIN SCORE: Non-responsive. LOCATION: Bilateral chest FINDINGS: There is a stable right IJ central line. There is also a stable mediastinal drain in place. Significa nt interval progression of subcutaneous emphysema with enlargement of right-sided pneumothorax now mo derate to large in size measuring up to 6 cm at the apex. Subtle shift to the left. Trace left pleura l effusion and left lower lobe airspace disease. Cardiomedi sternal contours are stable. Remainder of the exam is unchanged. CONCLUSION: 1. Significant interval enlargement of right-sided pneumothorax now 26 cm at the apex with diffuse woodard bcutaneous emphysema. There is very subtle mediastinal shift. Giovanni Saha MD on July 26, 2017 at 13:44 Board Certified Radiologist. This report was verified electronically.
--- NOTE | 2017-07-26 14:49 | RADRPT ---
EXAM DATE/TIME: 07/26/2017 13:50 [facility] COMPARISON: CHEST SINGLE AP, July 26, 2017, 13:23. INDICATIONS : Right chest tube placement MEDICAL HISTORY : Cardiovascular disease. SURGICAL HISTORY : CABG. ENCOUNTER: Subsequent ACUITY: 4 - 6 days PAIN SCORE: Non-responsive. LOCATION: Right chest FINDINGS: Interval placement of pigtail right apical chest tube. Near interval resolution of large right-sided pneumothorax. Redemonstration of extensive soft tissue emphysema. Bibasilar pleural-parenchymal disea se. Remainder of exam is unchanged. CONCLUSION: 1. Near interval resolution of large right-sided pneumothorax status post placement of right apical c hest tube. 2. Extensive chest wall emphysema. 3. Remainder of the exam is unchanged. Giovanni Saha MD on July 26, 2017 at 14:45 Board Certified Radiologist. This report was verified electronically.
[2017-07-26] MEDS: LORazepam 0.5 MG TAB PO PRN ×2 (15:07→22:05)
--- NOTE | 2017-07-26 15:45 | PD.CONS ---
HPI Service Critical Care Medicine Consult Requested By [facility] Reason for Consult Dyspnea Primary Care Physician Gomez Diaz, DO History of Present Illness This is a 76-year-old female that presented to the hospital with severe aortic stenosis with the LEATHA of 0.57. The patient is S/P AVR,POD #2. The patient was noted to have mild dyspnea early this a.m. that became progressively worse. Patient was out of bed in chair, and began aggressively coughing, with immediate noted subcutaneous emphysema of the neck and face and complaints of difficulty breathing. Critical care medicine was consulted. Upon arrival the patient was noted to have significant subcutaneous emphysema of the chest neck and face, O2 saturations marginal 89% on nasal cannula. Patient was placed on 50% Ventimask and place back into bed, stat ABG, chest x-ray was obtained. Previously patient was noted to have a small apical pneumothorax now moderately large. Right apical chest tube was placed. Review of Systems ROS 12 point review of systems performed with patient and negative except for pertinent positives mentioned in the above history and physical Past Family Social History Allergies: Coded Allergies: codeine (Verified Allergy, Severe, hallucinate, 07/24/17) Uncoded Allergies: PENNICILLIN (Allergy, Severe, rash, 07/24/17) Active Ordered Medications Reviewed Family History Unable to obtain secondary to clinical condition Social History Unable to obtain secondary to respiratory distress Physical Exam Vital Signs Vital Signs Date Time Temp Pulse Resp B/P (MAP) Pulse Ox O2 Delivery O2 Flow Rate FiO2 07/26/17 15:16 97.6 87 17 131/57 (81) 100 07/26/17 15:15 87 07/26/17 14:28 100 Non-Rebreather 07/26/17 12:18 91 Nasal Cannula 3.00 07/26/17 11:34 97.8 92 17 107/57 (74) 97 07/26/17 11:33 92 07/26/17 09:53 15 07/26/17 08:11 96 Nasal Cannula 3.00 07/26/17 07:41 97.6 86 22 105/49 (67) 99 07/26/17 07:40 86 07/26/17 07:05 98 Nasal Cannula 4.00 07/26/17 04:43 96 Nasal Cannula 4.00 07/26/17 03:00 91 07/26/17 02:12 16 07/26/17 00:00 95 Nasal Cannula 4.00 07/25/17 23:00 106 07/25/17 23:00 98.5 99 16 110/47 (68) 97 07/25/17 21:09 96 Nasal Cannula 4.00 07/25/17 20:00 97 Nasal Cannula 4.00 07/25/17 19:00 97.9 114 18 144/59 (87) 95 07/25/17 16:01 97 Nasal Cannula 2.00 Physical Exam GENERAL: Well-developed well-nourished elderly female in moderate distress complaints of difficulty breathing SKIN: Warm and dry. Noticed significant subcutaneous emphysema of anterior chest, neck, and face HEAD: Atraumatic. Normocephalic. EYES: Pupils equal and round. No scleral icterus. No injection or drainage. ENT: No nasal bleeding or discharge. Mucous membranes pink and moist. NECK: Trachea midline. No JVD. No thickened soft tissue subcutaneous emphysema CARDIOVASCULAR: Normal rate, regular rhythm. RESPIRATORY: Accessory muscle use. Clear to auscultation. Breath sounds equal bilaterally. Mediastinal chest tube to -40cm with air leak GASTROINTESTINAL: Abdomen soft, non-tender, nondistended. No guarding. MUSCULOSKELETAL: Extremities without clubbing, cyanosis, or edema. No obvious deformities. NEUROLOGICAL: Awake and alert. RASS 0. No gross focal/sensory deficits. Follows commands in all 4 extremities. Laboratory Laboratory Tests Test 07/26/17 05:00 07/26/17 13:25 White Blood Count 10.9 Red Blood Count 2.96 Hemoglobin 9.0 Hematocrit 25.4 Mean Corpuscular Volume 85.9 Mean Corpuscular Hemoglobin 30.3 Mean Corpuscular Hemoglobin Concent 35.2 Red Cell Distribution Width 14.3 Platelet Count 54 Mean Platelet Volume 8.0 Neutrophils (%) (Auto) 75.7 Lymphocytes (%) (Auto) 14.7 Monocytes (%) (Auto) 9.0 Eosinophils (%) (Auto) 0.2 Basophils (%) (Auto) 0.4 Neutrophils # (Auto) 8.2 Lymphocytes # (Auto) 1.6 Monocytes # (Auto) 1.0 Eosinophils # (Auto) 0.0 Basophils # (Auto) 0.0 CBC Comment AUTO DIFF Differential Comment AUTO DIFF CONFIRMED Blood Urea Nitrogen 24 Creatinine 0.66 Random Glucose 74 Calcium Level 7.8 Magnesium Level 2.4 Sodium Level 137 Potassium Level 4.3 Chloride Level 104 Carbon Dioxide Level 26.5 Anion Gap 7 Estimat Glomerular Filtration Rate 87 Blood Gas Puncture Site RT RADIAL Blood Gas Patient Temperature 98.6 Blood Gas HCO3 23 Blood Gas Base Excess -1.7 Blood Gas Oxygen Saturation 93 Arterial Blood pH 7.34 Arterial Blood Partial Pressure CO2 44 Arterial Blood Partial Pressure O2 77 Arterial Blood Oxygen Content 13.1 Arterial Blood Carboxyhemoglobin 1.3 Arterial Blood Methemoglobin 1.1 Blood Gas Hemoglobin 10.0 Oxygen Delivery Device Venti Mask Blood Gas Liter Flow 6 Blood Gas Inspired Oxygen 50 Date/Time Source Procedure Growth Status 07/24/17 11:30 Other Fungal Smear - Final NO FUNGAL ELEMENTS SEEN. Resulted 07/24/17 11:30 Other Fungal Culture Pending Resulted Result Diagram: 07/26/17 0500 07/26/17 0500 Imaging Last 24 hours Impressions Chest X-Ray 07/26/17 1349 Signed Impressions: Service Date/Time: Wednesday, July 26, 2017 13:50 - CONCLUSION: 1. Near interval resolution of large right-sided pneumothorax status post placement of right apical chest tube. 2. Extensive chest wall emphysema. 3. Remainder of the exam is unchanged. Giovanni Saha MD Chest X-Ray 07/26/17 1314 Signed Impressions: Service Date/Time: Wednesday, July 26, 2017 13:23 - CONCLUSION: 1. Significant interval enlargement of right-sided pneumothorax now 26 cm at the apex with diffuse subcutaneous emphysema. There is very subtle mediastinal shift. Giovanni Saha MD Last Impressions Chest X-Ray 07/26/17 1349 Signed Impressions: Service Date/Time: Wednesday, July 26, 2017 13:50 - CONCLUSION: 1. Near interval resolution of large right-sided pneumothorax status post placement of right apical chest tube. 2. Extensive chest wall emphysema. 3. Remainder of the exam is unchanged. Giovanni Saha MD Septic Shock Reassessment Heart: Regular rate and rhythm Lungs: Clear Skin: Warm Peripheral Pulses: Bounding Right Radial Bounding Left Radial Assessment and Plan Assessment and Plan Assessment This is a 76-year-old female S/P AVR with enlargement of previously noted small apical pneumothorax, now with spontaneous enlargement right pneumothorax with slight mediastinal shift, and emergent placement of right apical chest tube. Assessment Right pneumothorax Acute hypoxemic Respiratory failure Soft tissue emphysema anterior chest, neck and face S/P AVR, POD #2 Postoperative pain Anxiety disorder Anemia GERD H/O COPD Plan Plan by systems: Neurologic: Continue anti-anxiety medications as ordered Pain medications per CVS management Ativan 0.5 mg every 6 hours when necessary for anxiety Respiratory: Patient previously on Ventimask 50% then increased to 100% nonrebreather- with low PAO2 Obtain stat ABG post placement of chest tube wean FiO2 Maintain right apical chest tube -40cm [id number] of 10 Arabic CXR postplacement-near resolution of large right-sided pneumothorax Continue to monitor soft tissue emphysema patient is at risk for possible reintubation Mediastinal chest tube with small air leak-management per CT surgery Monitor signs for respiratory distress Cardiovascular: Postop management status post AVR per CT surgery Maintain MAP greater than 65mmHg Renal: Jerome -- Strict I/Os FEN/GI: Electrolyte replacement per CV ICU protocol Maintain nothing by mouth status tonight, reassess in a.m. Heme/ID: Monitor CBC Endocrine: Glucose monitoring with sliding scale per CV ICU protocol -- SSI Prophylaxis: GI Prophylaxis Protonix DVT Prophylaxis -- SCDs Management coagulation initiation per CTS management Lines: Right IJ in situ Dispo: This patient remains critically ill with one or more organ systems which are or may become a threat to life. I have spent in excess of 35 minutes discontinuously in the care and management of this patient. This time is exclusive of procedures, and includes, but is not limited to, evaluation of the patient, review of the medical record, discussions with family, consultants, nursing staff, or respiratory therapy, and documentation in the medical record. Code Status Full Discussed Condition With Patient's daughter Andrea, and [employer] RESISTANCE MACHINE at bedside. DR. Gandhi notified of events. Tess Gold MD Jul 26, 2017 15:45
[2017-07-26 15:47] LABS: BLOOD GAS BASE EXCESS -0.8 mmol/L (-2-2); BLOOD GAS CARBOXYHEMOGLOBIN 0.9 % (0-4); BLOOD GAS HCO3 23 mmol/L (22-26); BLOOD GAS METHEMOGLOBIN 1.1 % (0-2); BLOOD GAS O2 HGB SATURATION 98 % (90-100); BLOOD GAS OXYGEN CONTENT 14.1 Vol % (12.0-20.0); BLOOD GAS PCO2 39 mmHg (38-42); BLOOD GAS PO2 363 mmHg (61-120); BLOOD GAS TOTAL HGB 9.6 G/DL (12.0-16.0); CRITICAL VALUE NO; DRAW SITE RT RADIAL; LITER FLOW 15 L/M; NUMBER OF ARTERIAL PUNCTURES 1; STAT NO; TEMP CORR TO 98.6
--- NOTE | 2017-07-26 15:50 | PD.PROCEDR ---
Procedure Note Procedure CHEST TUBE PLACEMENT The patient was positioned, prepped and draped in usual sterile fashion. 2 cc 1 % lidocaine was used to anesthetize the area. An introducer needle was advanced right anterior axillary at 4th ICS with aspiration of air. A guidewire was placed. A pigtail catheter was placed using the Seldinger technique. A chest x-ray was ordered to evaluate for placement of the chest tube. The tube was secured . The patient tolerated the procedure well and there were no complications. Blood loss was minimal Complications-none A chest x-ray is pending I personally performed the procedure Tess Gold MD Jul 26, 2017 15:50
[2017-07-26] MEDS: FUROSEMIDE 40 MG TAB PO SCH (17:50)
[2017-07-26] MEDS: DEXTROSE 50% IN WATER 50 ML VIAL(D50) IV PUSH PRN ×2 (18:09→18:17)
[2017-07-26] MEDS: SENNOSIDES 8.6 MG TAB PO SCH (21:00)
[2017-07-26] MEDS ORDERED: AMIODARONE 150 MG/D5W 97 ML BOLUS 10 MINUTES IV ONE ×2 (22:00)
[2017-07-26] MEDS: AMIODARONE INJ 450 MG in D5W (EXCEL BAG) INJ 241 ML IV PRN (23:28)
[2017-07-27] VITALS (10 sets, daily range): BP systolic 106–150; BP diastolic 46–62; PULSE 71–94; RESP 12–18; TEMP 98–101; O2SAT 94–99
[2017-07-27] MEDS: ACETAMINOPHEN/HYDROcodone 325 MG/5 MG TAB PO PRN ×4 (00:03→23:57)
[2017-07-27] MEDS: INSULIN ASPART SUPPLEMENTAL SCALE SQ SCH ×5 (02:00→20:57)
[2017-07-27 05:05] LABS: HEMATOCRIT 25.1 % (35.0-46.0); MEAN CELL VOLUME 86.9 FL (80.0-100.0); MEAN CORPUSCULAR HEMOGLOBIN 30.1 PG (27.0-34.0); MEAN CORPUSCULAR HGB CONC 34.6 % (32.0-36.0); PLATELET COUNT 84 TH/MM3 (150-450); RED BLOOD COUNT 2.89 MIL/MM3 (4.00-5.30); RED CELL DISTRIBUTION WIDTH 14.2 % (11.6-17.2); WHITE BLOOD COUNT 10.7 TH/MM3 (4.0-11.0)
[2017-07-27 05:08] LABS: REVIEW FLAG FINAL
[2017-07-27 05:31] LABS: BICARBONATE 29.5 MEQ/L (21.0-32.0); MAGNESIUM 1.9 MG/DL (1.5-2.5); POTASSIUM 3.9 MEQ/L (3.5-5.1)
[2017-07-27] MEDS: PANTOPRAZOLE SOD 40 MG DELAYED RELEASE TAB PO SCH (06:00)
[2017-07-27] MEDS: POTASSIUM CHLOR 20 MEQ PREMIX 100 ML IV PRN (06:09)
--- NOTE | 2017-07-27 06:31 | RADRPT ---
EXAM DATE/TIME: 07/27/2017 05:07 [facility] COMPARISON: CHEST SINGLE AP, July 26, 2017, 13:50. INDICATIONS : Shortness of breath, possible pneumothorax. MEDICAL HISTORY : Cardiovascular disease. SURGICAL HISTORY : CABG. ENCOUNTER: Subsequent ACUITY: 1 week PAIN SCORE: 8/10 LOCATION: Bilateral chest FINDINGS: A single AP erect view of the chest was obtained and again demonstrated fat the patient is status pos t median sternotomy. A mediastinal chest tube remains in place. There is a small bore right-sided noris st tube in place with a small left apical pneumothorax now noted measuring up to approximately 11 mm. There is consolidative opacity in both lung bases. Both costophrenic angles remain blunted. The hear t size is within normal limits. Extensive subcutaneous emphysema is noted over both sides of the ches t. There is no left pneumothorax. CONCLUSION: 1. Small bore right-sided chest tube remains in place with small right apical pneumothorax now noted. 2. Subcutaneous emphysema over both sides of the chest with no left pneumothorax. 3. Abnormal consolidative opacity remains at the lung bases right greater than left. 4. Blunting of the costophrenic angles bilaterally consistent with small effusions. Flip Keen MD on July 27, 2017 at 6:28 Board Certified Radiologist. This report was verified electronically.
[2017-07-27] MEDS: POLYETHYLENE GLYCOL 17 GM PKG PO SCH (08:44)
[2017-07-27] MEDS: MULTIVITAMINS/MINERALS THERAPEUTIC TAB PO SCH (08:45)
[2017-07-27] MEDS: MAGNESIUM HYDROXIDE SUSP 30 ML CUP PO SCH (08:45)
[2017-07-27] MEDS: FUROSEMIDE 40 MG TAB PO SCH ×2 (08:45→17:41)
[2017-07-27] MEDS: CLOPIDOGREL 75 MG TAB PO SCH (08:45)
[2017-07-27] MEDS: DOCUSATE SODIUM 100 MG CAP PO SCH ×2 (08:46→19:56)
[2017-07-27] MEDS: AMIODARONE 200 MG TAB PO SCH ×2 (08:47→20:57)
[2017-07-27] MEDS: MAGNESIUM SULFATE INJ 2 GM in SODIUM CHLORIDE 0.9% INJ 100 ML IV PRN (08:48)
[2017-07-27] MEDS: AMIODARONE INJ 450 MG in D5W (EXCEL BAG) INJ 241 ML IV PRN (08:49)
[2017-07-27] MEDS: SODIUM CHLORIDE 0.9% FLUSH 10 ML FLUSH IV FLUSH SCH ×2 (08:49→20:57)
[2017-07-27] MEDS: MUPIROCIN 2% OINT 22 GM TUBE EACH NARE SCH ×2 (08:49→20:57)
[2017-07-27] MEDS: ASPIRIN 81 MG CHEW TAB PO SCH (08:50)
--- NOTE | 2017-07-27 10:28 | HHI.CCPN ---
Subjective Remarks/Hospital Course This is a 76-year-old female that presented to the hospital with severe aortic stenosis with the LEATHA of 0.57. The patient is S/P AVR,POD #2. The patient was noted to have mild dyspnea early this a.m. that became progressively worse. Patient was out of bed in chair, and began aggressively coughing, with immediate noted subcutaneous emphysema of the neck and face and complaints of difficulty breathing. Critical care medicine was consulted. Upon arrival the patient was noted to have significant subcutaneous emphysema of the chest neck and face, O2 saturations marginal 89% on nasal cannula. Patient was placed on 50% Ventimask and place back into bed, stat ABG, chest x-ray was obtained. Previously patient was noted to have a small apical pneumothorax now moderately large. Right apical chest tube was placed. Subjective: 07/27: Tmax 101.0 last evening. Respiratory status markedly improved, now on 3 L nasal cannula with 97% O2 sat. Chest x-ray showing consolidations right greater than left this a.m., empiric antibiotics initiated. Plans for palencia and mediastinal chest tube to be discontinued today. Objective Vital Signs Date Time Temp Pulse Resp B/P (MAP) Pulse Ox O2 Delivery O2 Flow Rate FiO2 07/27/17 08:49 78 125/36 07/27/17 08:14 94 Nasal Cannula 2.00 07/27/17 07:00 98.9 18 07/24/17 16:05 40 Intake and Output 07/27/17 07/27/17 07/28/17 08:00 16:00 00:00 Intake Total 668 ml 204 ml Output Total 1215 ml Balance -547 ml 204 ml Result Diagram: 07/27/17 0430 07/27/17 0430 Other Results Laboratory Tests Test 07/26/17 13:25 07/26/17 15:37 Blood Gas Puncture Site RT RADIAL RT RADIAL Blood Gas Patient Temperature 98.6 98.6 Blood Gas HCO3 23 mmol/L (22-26) 23 mmol/L (22-26) Blood Gas Base Excess -1.7 mmol/L (-2-2) -0.8 mmol/L (-2-2) Blood Gas Oxygen Saturation 93 % (90-100) 98 % (90-100) Arterial Blood pH 7.34 (7.380-7.420) 7.39 (7.380-7.420) Arterial Blood Partial Pressure CO2 44 mmHg (38-42) 39 mmHg (38-42) Arterial Blood Partial Pressure O2 77 mmHg (61-120) 363 mmHg (61-120) Arterial Blood Oxygen Content 13.1 Vol % (12.0-20.0) 14.1 Vol % (12.0-20.0) Arterial Blood Carboxyhemoglobin 1.3 % (0-4) 0.9 % (0-4) Arterial Blood Methemoglobin 1.1 % (0-2) 1.1 % (0-2) Blood Gas Hemoglobin 10.0 G/DL (12.0-16.0) 9.6 G/DL (12.0-16.0) Oxygen Delivery Device Venti Mask Non-Rebreathing Mask Blood Gas Liter Flow 6 L/M 15 L/M Blood Gas Inspired Oxygen 50 % Imaging Last 24 hours Impressions Chest X-Ray 07/26/17 1349 Signed Impressions: Service Date/Time: Wednesday, July 26, 2017 13:50 - CONCLUSION: 1. Near interval resolution of large right-sided pneumothorax status post placement of right apical chest tube. 2. Extensive chest wall emphysema. 3. Remainder of the exam is unchanged. Giovanni Saha MD Chest X-Ray 07/26/17 1314 Signed Impressions: Service Date/Time: Wednesday, July 26, 2017 13:23 - CONCLUSION: 1. Significant interval enlargement of right-sided pneumothorax now 26 cm at the apex with diffuse subcutaneous emphysema. There is very subtle mediastinal shift. Giovanni Saha MD Last Impressions Chest X-Ray 07/26/17 1349 Signed Impressions: Service Date/Time: Wednesday, July 26, 2017 13:50 - CONCLUSION: 1. Near interval resolution of large right-sided pneumothorax status post placement of right apical chest tube. 2. Extensive chest wall emphysema. 3. Remainder of the exam is unchanged. Giovanni Saha MD Objective Remarks GENERAL: Well-developed well-nourished elderly female in no apparent distress SKIN: Warm and dry. Noted subcutaneous emphysema of anterior chest, neck and face HEAD: Atraumatic. Normocephalic. EYES: Pupils equal and round. No scleral icterus. No injection or drainage. ENT: No nasal bleeding or discharge. Mucous membranes pink and moist. NECK: Trachea midline. No JVD. No thickened soft tissue subcutaneous emphysema CARDIOVASCULAR: Normal rate, regular rhythm. RESPIRATORY: Accessory muscle use. Clear to auscultation. Breath sounds equal bilaterally. Mediastinal chest tube @-30cm,right apical chest tube@-40 GASTROINTESTINAL: Abdomen soft, non-tender, nondistended. No guarding. MUSCULOSKELETAL: Extremities without clubbing, cyanosis, or edema. No obvious deformities. NEUROLOGICAL: Awake and alert. RASS 0. No gross focal/sensory deficits. Follows commands in all 4 extremities. Urinary Catheter: Yes Assessment to: Remove Date of Insertion: Jul 26, 2017 Date of Removal: Jul 27, 2017 A/P Assessment and Plan Assessment This is a 76-year-old female S/P AVR with enlargement of previously noted small apical pneumothorax, now with spontaneous enlargement right pneumothorax with slight mediastinal shift, and emergent placement of right apical chest tube. Assessment Right pneumothorax Acute hypoxemic Respiratory failure-resolved Soft tissue emphysema anterior chest, neck and face S/P AVR, POD #3 Postoperative pain Anxiety disorder Anemia GERD H/O COPD Plan Plan by systems: Neurologic: Continue anti-anxiety medications as ordered Pain medications per [facility]S management Ativan 0.5 mg every 6 hours when necessary for anxiety Respiratory: Patient previously on Ventimask 50% then increased to 100% nonrebreather- with low PAO2 Obtain stat ABG post placement of chest tube wean FiO2 Maintain right apical chest tube -40cm [id number] of 10 Yoruba CXR postplacement-near resolution of large right-sided pneumothorax Mediastinal chest tube with small air leak-management per CT surgery, after discontinuation today 07/27-chest x-ray mild right apical pneumothorax, no left pneumothorax, consolidation opacity right greater than left Continue incentive spirometry and aggressive pulmonary toileting Cardiovascular: Postop management status post AVR per CT surgery Maintain MAP greater than 65mmHg Renal: D/C Palencia -- Strict I/Os FEN/GI: Electrolyte replacement per [facility] ICU protocol Heart healthy diet Bowel regimen Heme/ID: Monitor CBC . WBC 10, stable Obtain cultures blood 2, and pneumococcal urine antigen follow-up results Initiate empiric antibiotics Aztrezonam and Levaquin (day 1), will deescalate upon results Endocrine: Glucose monitoring with sliding scale per CV ICU protocol -- SSI Prophylaxis: GI Prophylaxis Protonix DVT Prophylaxis -- SCDs Management coagulation initiation per CTS management Lines: Right IJ in situ Dispo: Level 3. Patient to be transferred to [facility] today. Discussed with Irlanda Edwards os CTS, and OUTSOLE CASER at bedside.Critical care management will sign off. Thank you for the consult. Physician Tess Fox MD Jul 27, 2017 10:28
[2017-07-27] MEDS ORDERED: AMIODARONE 200 MG TAB PO ONE (11:00)
[2017-07-27] MEDS: LEVOFLOXACIN 500 MG PREMIX INJ 100 ML IV SCH (11:42)
[2017-07-27] MEDS: AZTREONAM INJ 1,000 MG in SODIUM CHLORIDE 0.9% INJ 100 ML IV SCH ×3 (11:42→23:57)
--- NOTE | 2017-07-27 14:20 | PD.CAR.PN ---
CVT Progress Note Subjective/Hospital Course: 76/ female hx of 10month h/o progressive SOB with minimal exertion. Echo revealed sever with rheumatic appearing leaflets ( LEATHA 0.57) , Cardiac cath revealed normal coronaries PMH: anemia, anxiety, carotid bruit, fatigue, GERD, migraines 07/25/17 Doing well, no complaints 07/26/17 c/o some dyspnea this morning No complaints currently Small air leak from chest tube 07/27 pig tail cath inserted right upper chest , + sub q emphysema right and left chest wall CXR noted small right apical PTX mediastinal chest tube removed , OOB ambulate on po amiodarone , back in NSR transfer to stepdown unit had low grade temp, BC UA pending, on broad spectrum antibiotics dc palencia cath and CVC line Objective: GENERAL: A&0 x 3 SKIN: Warm and dry. prevena dressing to mid sternum, right groin area HEAD: Normocephalic. EYES: No scleral icterus. No injection or drainage. NECK: Supple, trachea midline. No JVD or lymphadenopathy. CARDIOVASCULAR: Regular rate and rhythm without murmurs, gallops, or rubs. v wires removed RESPIRATORY: Breath sounds equal bilaterally. No accessory muscle use. diminished in bases, mediastinal chest tube removed , right upper pig tail cath in place GASTROINTESTINAL: Abdomen soft, non-tender, nondistended. MUSCULOSKELETAL: No cyanosis, or edema. BACK: Nontender without obvious deformity. No CVA tenderness. Vital Signs Date Time Temp Pulse Resp B/P (MAP) Pulse Ox O2 Delivery O2 Flow Rate FiO2 07/27/17 11:55 98.4 84 18 150/62 (91) 95 07/27/17 08:49 78 125/36 07/27/17 08:14 94 Nasal Cannula 2.00 07/27/17 08:00 96 Nasal Cannula 2.00 07/27/17 07:00 81 07/27/17 07:00 98.9 81 18 128/54 (78) 96 07/27/17 04:00 97 Nasal Cannula 2.00 07/27/17 04:00 80 07/27/17 04:00 99.7 80 16 106/46 (66) 97 07/27/17 00:00 94 Nasal Cannula 2.00 07/27/17 00:00 101.0 94 18 136/55 (82) 94 07/27/17 00:00 94 07/26/17 23:28 106 120/58 07/26/17 22:27 156 117/43 07/26/17 22:00 156 07/26/17 21:20 97 Nasal Cannula 2.00 07/26/17 20:00 100.6 97 16 130/52 (78) 95 07/26/17 20:00 96 07/26/17 20:00 95 Nasal Cannula 2.00 07/26/17 16:04 98 Nasal Cannula 4.00 07/26/17 15:16 97.6 87 17 131/57 (81) 100 07/26/17 15:15 87 07/26/17 14:28 100 Non-Rebreather Labs: Laboratory Tests Test 07/27/17 04:30 White Blood Count 10.7 TH/MM3 (4.0-11.0) Red Blood Count 2.89 MIL/MM3 (4.00-5.30) Hemoglobin 8.7 GM/DL (11.6-15.3) Hematocrit 25.1 % (35.0-46.0) Mean Corpuscular Volume 86.9 FL (80.0-100.0) Mean Corpuscular Hemoglobin 30.1 PG (27.0-34.0) Mean Corpuscular Hemoglobin Concent 34.6 % (32.0-36.0) Red Cell Distribution Width 14.2 % (11.6-17.2) Platelet Count 84 TH/MM3 (150-450) Mean Platelet Volume 8.3 FL (7.0-11.0) Blood Urea Nitrogen 13 MG/DL (7-18) Creatinine 0.54 MG/DL (0.50-1.00) Random Glucose 131 MG/DL (74-106) Calcium Level 7.7 MG/DL (8.5-10.1) Magnesium Level 1.9 MG/DL (1.5-2.5) Sodium Level 132 MEQ/L (136-145) Potassium Level 3.9 MEQ/L (3.5-5.1) Chloride Level 98 MEQ/L (98-107) Carbon Dioxide Level 29.5 MEQ/L (21.0-32.0) Anion Gap 5 MEQ/L (5-15) Estimat Glomerular Filtration Rate 110 ML/MIN (>89) Result Diagram: 07/27/17 0430 07/27/17 0430 Telemetry: Afib> NSR (1) Anxiety (2) Chronic anemia (3) S/P AVR (aortic valve replacement) Plan: on ASA, plavix BB, amiodarone OOB, ambulate pulm toileting (4) Severe aortic valve stenosis Rosa M Snow Jul 27, 2017 14:20
[2017-07-27] MEDS ORDERED: PILL SPLITTER OTHER PRN (14:30)
[2017-07-27] MEDS: DIVALPROEX SODIUM DELAYED RELEASE 250 MG TAB PO SCH (17:40)
[2017-07-27] MEDS: UMECLIDINIUM 62.5 MCG/VILANTEROL 25 MCG INHALER INH SCH (17:41)
[2017-07-27] MEDS: METOPROLOL TARTRATE 25 MG TAB PO SCH ×2 (17:43→19:55)
--- NOTE | 2017-07-27 18:23 | EKG ---
Date Performed: 07/26/2017 Time Performed: 21:25:58 PTAGE: 76 years EKG: Atrial fibrillation with uncontrolled ventricular response. Poor R wave progression - proba ble normal variant Inferior/lateral ST-T changes are nonspecific Low QRS voltages in precordial leads Abnormal ECG Compared to PREVIOUS TRACING , patient is now in atrial fibrillation with rapid ventricular response. Previous EKG showed normal Sinus rhythm . PREVIOUS TRACIN07/24/2017 06.40 DOCTOR: Bo Figueroa Interpretating Date/Time 07/27/2017 18:21:37
[2017-07-27] MEDS: SENNOSIDES 8.6 MG TAB PO SCH (19:56)
[2017-07-27] MEDS: RESP: ALBUTEROL 2.5 MG/IPRATROPIUM 0.5 MG NEB (PRN) NEB (20:27)
[2017-07-28] VITALS (11 sets, daily range): BP systolic 106–191; BP diastolic 49–74; PULSE 71–88; RESP 15–18; TEMP 97.5–98.3; O2SAT 91–97
[2017-07-28] MEDS: PANTOPRAZOLE SOD 40 MG DELAYED RELEASE TAB PO SCH (05:08)
[2017-07-28] MEDS: AZTREONAM INJ 1,000 MG in SODIUM CHLORIDE 0.9% INJ 100 ML IV SCH ×4 (05:08→23:45)
[2017-07-28] MEDS: ACETAMINOPHEN/HYDROcodone 325 MG/5 MG TAB PO PRN ×5 (05:09→20:18)
[2017-07-28 05:41] LABS: AUTOMATED NEUTROPHIL # 8.1 TH/MM3 (1.8-7.7); BASOPHIL % 0.3 % (0.0-2.0); EOSINOPHIL # 0.2 TH/MM3 (0-0.4); EOSINOPHIL % 1.8 % (0.0-4.0); HEMATOCRIT 24.4 % (35.0-46.0); HEMO FLAGS DIFF FINAL; LYMPH % 14.9 % (9.0-44.0); LYMPHOCYTE # 1.6 TH/MM3 (1.0-4.8); MEAN CELL VOLUME 85.8 FL (80.0-100.0); MEAN CORPUSCULAR HEMOGLOBIN 30.2 PG (27.0-34.0); MEAN CORPUSCULAR HGB CONC 35.2 % (32.0-36.0); MONO % 6.7 % (0.0-8.0); NEUT % 76.3 % (16.0-70.0); PLATELET COUNT 125 TH/MM3 (150-450); RED BLOOD COUNT 2.85 MIL/MM3 (4.00-5.30); RED CELL DISTRIBUTION WIDTH 13.8 % (11.6-17.2); WHITE BLOOD COUNT 10.6 TH/MM3 (4.0-11.0)
--- NOTE | 2017-07-28 05:53 | RADRPT ---
EXAM DATE/TIME: 07/28/2017 04:57 [facility] COMPARISON: CHEST SINGLE AP, July 27, 2017, 5:07. INDICATIONS : Short of breath, respiratory disease. MEDICAL HISTORY : Cardiovascular disease. SURGICAL HISTORY : CABG. ENCOUNTER: Subsequent ACUITY: 4 - 6 days PAIN SCORE: 0/10 LOCATION: Bilateral chest FINDINGS: A single AP portable semierect view of the chest was obtained. The previous noted right apical pneumo thorax is no longer visualized. Small bore right-sided chest tube remains in place. Extensive subcuta neous emphysema is noted. There has been removal of the right internal jugular central venous line. H azy infiltrate remains at the lung bases with blunting of both costophrenic angles. Patient is status post median sternotomy for bypass grafting procedure. CONCLUSION: 1. The right-sided chest tube remains in place with no visualized pneumothorax. 2. Hazy infiltrate remains at the lung bases with small effusions. Flip Keen MD on July 28, 2017 at 5:50 Board Certified Radiologist. This report was verified electronically.
[2017-07-28 06:01] LABS: BICARBONATE 27.5 MEQ/L (21.0-32.0); MAGNESIUM 1.8 MG/DL (1.5-2.5); POTASSIUM 4.1 MEQ/L (3.5-5.1)
[2017-07-28] MEDS: INSULIN ASPART SUPPLEMENTAL SCALE SQ SCH ×4 (08:00→20:25)
[2017-07-28] MEDS: DIVALPROEX SODIUM DELAYED RELEASE 250 MG TAB PO SCH (08:44)
[2017-07-28] MEDS: MULTIVITAMINS/MINERALS THERAPEUTIC TAB PO SCH (08:44)
[2017-07-28] MEDS: DOCUSATE SODIUM 100 MG CAP PO SCH ×2 (08:45→20:18)
[2017-07-28] MEDS: AMIODARONE 200 MG TAB PO SCH ×2 (08:45→20:18)
[2017-07-28] MEDS: CLOPIDOGREL 75 MG TAB PO SCH (08:45)
[2017-07-28] MEDS: MAGNESIUM HYDROXIDE SUSP 30 ML CUP PO SCH (08:46)
[2017-07-28] MEDS: FUROSEMIDE 40 MG TAB PO SCH ×2 (08:46→17:10)
[2017-07-28] MEDS: ASPIRIN 81 MG CHEW TAB PO SCH (08:46)
[2017-07-28] MEDS: POLYETHYLENE GLYCOL 17 GM PKG PO SCH (08:47)
[2017-07-28] MEDS: SODIUM CHLORIDE 0.9% FLUSH 10 ML FLUSH IV FLUSH SCH ×2 (08:48→20:19)
[2017-07-28] MEDS: UMECLIDINIUM 62.5 MCG/VILANTEROL 25 MCG INHALER INH SCH (09:00)
[2017-07-28] MEDS: METOPROLOL TARTRATE 25 MG TAB PO SCH ×2 (09:00→20:19)
--- NOTE | 2017-07-28 11:01 | PD.CAR.PN ---
CVT Progress Note Subjective/Hospital Course: 76/ female hx of 10month h/o progressive SOB with minimal exertion. Echo revealed sever with rheumatic appearing leaflets ( LEATHA 0.57) , Cardiac cath revealed normal coronaries PMH: anemia, anxiety, carotid bruit, fatigue, GERD, migraines 07/25/17 Doing well, no complaints 07/26/17 c/o some dyspnea this morning No complaints currently Small air leak from chest tube 07/27 pig tail cath inserted right upper chest , + sub q emphysema right and left chest wall CXR noted small right apical PTX mediastinal chest tube removed , OOB ambulate on po amiodarone , back in NSR transfer to stepdown unit had low grade temp, BC UA pending, on broad spectrum antibiotics dc palencia cath and CVC line 07/27 pt feels fair, WBC improved, await cultures to de-escalate antibiotics cxr noted no PTX , still has some subq emphysema on cxr improving , continue diuresis / +8kg continue pulm toileting, nebs ezpap acapella transfer to stepdown unit suction reduced to 20cm on chest tube Objective: GENERAL: SKIN: Warm and dry. prevena dressing to chest and right groin HEAD: Normocephalic. EYES: No scleral icterus. No injection or drainage. NECK: Supple, trachea midline. No JVD or lymphadenopathy. CARDIOVASCULAR: Regular rate and rhythm without murmurs, gallops, or rubs. RESPIRATORY: Breath sounds equal bilaterally. No accessory muscle use. few crackles in bases GASTROINTESTINAL: Abdomen soft, non-tender, nondistended. MUSCULOSKELETAL: No cyanosis, or edema. BACK: Nontender without obvious deformity. No CVA tenderness. Vital Signs Date Time Temp Pulse Resp B/P (MAP) Pulse Ox O2 Delivery O2 Flow Rate FiO2 07/28/17 09:47 97 Nasal Cannula 2.00 07/28/17 08:00 96 Nasal Cannula 2.00 07/28/17 07:00 74 07/28/17 07:00 97.8 74 15 114/49 (70) 96 07/28/17 04:10 97 Nasal Cannula 2.00 07/28/17 03:15 71 07/28/17 03:15 72 15 106/50 (68) 97 07/28/17 00:01 99 Nasal Cannula 2.00 07/27/17 23:53 98.0 80 16 118/54 (75) 99 07/27/17 23:53 91 07/27/17 20:43 99 Nasal Cannula 2.00 07/27/17 19:32 98.2 72 16 111/48 (69) 99 07/27/17 19:00 71 07/27/17 16:00 97 Nasal Cannula 2.00 07/27/17 15:00 81 07/27/17 15:00 98.2 82 12 106/52 (70) 97 07/27/17 12:00 96 Nasal Cannula 2.00 07/27/17 11:55 98.4 84 18 150/62 (91) 95 07/27/17 11:00 81 Labs: Laboratory Tests Test 07/28/17 04:27 White Blood Count 10.6 TH/MM3 (4.0-11.0) Red Blood Count 2.85 MIL/MM3 (4.00-5.30) Hemoglobin 8.6 GM/DL (11.6-15.3) Hematocrit 24.4 % (35.0-46.0) Mean Corpuscular Volume 85.8 FL (80.0-100.0) Mean Corpuscular Hemoglobin 30.2 PG (27.0-34.0) Mean Corpuscular Hemoglobin Concent 35.2 % (32.0-36.0) Red Cell Distribution Width 13.8 % (11.6-17.2) Platelet Count 125 TH/MM3 (150-450) Mean Platelet Volume 8.5 FL (7.0-11.0) Neutrophils (%) (Auto) 76.3 % (16.0-70.0) Lymphocytes (%) (Auto) 14.9 % (9.0-44.0) Monocytes (%) (Auto) 6.7 % (0.0-8.0) Eosinophils (%) (Auto) 1.8 % (0.0-4.0) Basophils (%) (Auto) 0.3 % (0.0-2.0) Neutrophils # (Auto) 8.1 TH/MM3 (1.8-7.7) Lymphocytes # (Auto) 1.6 TH/MM3 (1.0-4.8) Monocytes # (Auto) 0.7 TH/MM3 (0-0.9) Eosinophils # (Auto) 0.2 TH/MM3 (0-0.4) Basophils # (Auto) 0.0 TH/MM3 (0-0.2) CBC Comment DIFF FINAL Differential Comment Blood Urea Nitrogen 13 MG/DL (7-18) Creatinine 0.57 MG/DL (0.50-1.00) Random Glucose 117 MG/DL (74-106) Calcium Level 7.6 MG/DL (8.5-10.1) Phosphorus Level 2.6 MG/DL (2.5-4.9) Magnesium Level 1.8 MG/DL (1.5-2.5) Sodium Level 132 MEQ/L (136-145) Potassium Level 4.1 MEQ/L (3.5-5.1) Chloride Level 96 MEQ/L (98-107) Carbon Dioxide Level 27.5 MEQ/L (21.0-32.0) Anion Gap 9 MEQ/L (5-15) Estimat Glomerular Filtration Rate 103 ML/MIN (>89) Result Diagram: 07/28/1742607/28/17426 Telemetry: NSR (1) Anxiety (2) Chronic anemia Plan: on iron supplement (3) S/P AVR (aortic valve replacement) Plan: on ASA, plavix BB, amiodarone OOB, ambulate pulm toileting diuresis (4) Severe aortic valve stenosis (5) Leukocytosis (leucocytosis) Plan: cultures pending / then de-escalate antibiotics Rosa M Snow Jul 28, 2017 11:01
[2017-07-28] MEDS: LEVOFLOXACIN 500 MG PREMIX INJ 100 ML IV SCH (11:40)
[2017-07-28] MEDS: MAGNESIUM SULFATE 1 GM PREMIX 100 ML IV SCH ×2 (12:07→13:09)
[2017-07-28] MEDS: POTASSIUM CHLORIDE 20 MEQ CONTROLLED RELEASE TAB PO SCH ×2 (12:07→20:18)
[2017-07-28] MEDS: FERROUS SULFATE 325 MG (65 MG ELEMENTAL IRON) TAB PO SCH ×2 (12:07→17:10)
[2017-07-28 12:20] LABS: BACTERIA, URINE RARE /hpf; BLOOD, URINE TRACE (NEG); COMMENT (UR) CULTURE INDICATED; CULTURE IF INDICATED CULTURE INDICATED; GLUCOSE,URINE NEG (NEG); HYALINE CAST, URINE 4 /lpf (RARE); KETONE, URINE NEG (NEG); MUCUS URINE FEW /lpf (OCC); NITRITE,URINE NEG (NEG); SQUAMOUS EPITHELIAL CELL URINE <1 /hpf (0-5); URINE COLOR YELLOW (YELLW/STRAW)
[2017-07-28] MEDS: SENNOSIDES 8.6 MG TAB PO SCH (20:18)
[2017-07-29] VITALS (30 sets, daily range): BP systolic 114–138; BP diastolic 56–64; PULSE 68–83; RESP 16–17; TEMP 97.6–98.4; O2SAT 93–99
[2017-07-29] MEDS: ACETAMINOPHEN/HYDROcodone 325 MG/5 MG TAB PO PRN ×6 (01:21→20:26)
[2017-07-29] MEDS: PANTOPRAZOLE SOD 40 MG DELAYED RELEASE TAB PO SCH (04:52)
[2017-07-29] MEDS: AZTREONAM INJ 1,000 MG in SODIUM CHLORIDE 0.9% INJ 100 ML IV SCH (04:52)
[2017-07-29] MEDS: INSULIN ASPART SUPPLEMENTAL SCALE SQ SCH ×4 (07:46→20:28)
[2017-07-29] MEDS: MAGNESIUM HYDROXIDE SUSP 30 ML CUP PO SCH (08:11)
[2017-07-29] MEDS: DIVALPROEX SODIUM DELAYED RELEASE 250 MG TAB PO SCH (08:11)
[2017-07-29] MEDS: DOCUSATE SODIUM 100 MG CAP PO SCH ×3 (08:12→20:20)
[2017-07-29] MEDS: ASPIRIN 81 MG CHEW TAB PO SCH (08:12)
[2017-07-29] MEDS: MULTIVITAMINS/MINERALS THERAPEUTIC TAB PO SCH (08:13)
[2017-07-29] MEDS: CLOPIDOGREL 75 MG TAB PO SCH (08:14)
[2017-07-29] MEDS: FUROSEMIDE 40 MG TAB PO SCH ×2 (08:14→17:37)
[2017-07-29] MEDS: AMIODARONE 200 MG TAB PO SCH ×2 (08:14→20:19)
[2017-07-29] MEDS: POTASSIUM CHLORIDE 20 MEQ CONTROLLED RELEASE TAB PO SCH ×2 (08:14→20:19)
[2017-07-29] MEDS: UMECLIDINIUM 62.5 MCG/VILANTEROL 25 MCG INHALER INH SCH (08:15)
[2017-07-29] MEDS: METOPROLOL TARTRATE 25 MG TAB PO SCH ×2 (08:15→20:19)
[2017-07-29] MEDS: SODIUM CHLORIDE 0.9% FLUSH 10 ML FLUSH IV FLUSH SCH ×2 (08:16→20:19)
[2017-07-29] MEDS: POLYETHYLENE GLYCOL 17 GM PKG PO SCH (08:16)
[2017-07-29] MEDS: FERROUS SULFATE 325 MG (65 MG ELEMENTAL IRON) TAB PO SCH ×2 (11:47→17:36)
[2017-07-29] MEDS: LEVOFLOXACIN 500 MG PREMIX INJ 100 ML IV SCH (11:47)
--- NOTE | 2017-07-29 12:48 | PD.CAR.PN ---
CVT Progress Note Subjective/Hospital Course: 76/ female hx of 10month h/o progressive SOB with minimal exertion. Echo revealed sever with rheumatic appearing leaflets ( LEATHA 0.57) , Cardiac cath revealed normal coronaries PMH: anemia, anxiety, carotid bruit, fatigue, GERD, migraines 07/25/17 Doing well, no complaints 07/26/17 c/o some dyspnea this morning No complaints currently Small air leak from chest tube 07/27 pig tail cath inserted right upper chest , + sub q emphysema right and left chest wall CXR noted small right apical PTX mediastinal chest tube removed , OOB ambulate on po amiodarone , back in NSR transfer to stepdown unit had low grade temp, BC UA pending, on broad spectrum antibiotics dc palencia cath and CVC line 07/27 pt feels fair, WBC improved, await cultures to de-escalate antibiotics cxr noted no PTX , still has some subq emphysema on cxr improving , continue diuresis / +8kg continue pulm toileting, nebs ezpap acapella transfer to stepdown unit suction reduced to 20cm on chest tube 07/28 no air leak in chest tube, dc without difficulty on nasal cannula , had some nausea this am, BC neg to date will dc Azactam, has small nonraised rash on back , await urine culture amiodarone dose reduced Objective: GENERAL: SKIN: Warm and dry. prevena dressing to chest and right groin HEAD: Normocephalic. EYES: No scleral icterus. No injection or drainage. NECK: Supple, trachea midline. No JVD or lymphadenopathy. CARDIOVASCULAR: Regular rate and rhythm without murmurs, gallops, or rubs. RESPIRATORY: Breath sounds equal bilaterally. No accessory muscle use. diminished in bases GASTROINTESTINAL: Abdomen soft, non-tender, nondistended. MUSCULOSKELETAL: No cyanosis, or edema. BACK: Nontender without obvious deformity. No CVA tenderness. Vital Signs Date Time Temp Pulse Resp B/P (MAP) Pulse Ox O2 Delivery O2 Flow Rate FiO2 07/29/17 12:01 98 Nasal Cannula 2.00 07/29/17 12: 97.7 74 17 128/62 (84) 98 07/29/17 12:01 98 Nasal Cannula 2.00 07/29/17 12:00 75 07/29/17 11:00 71 07/29/17 10:00 74 07/29/17 09:00 75 07/29/17 08:10 17 07/29/17 08:01 98 Nasal Cannula 2.00 07/29/17 08:00 76 07/29/17 07:55 98.4 79 17 138/64 (88) 99 07/29/17 07:00 81 07/29/17 06:00 71 07/29/17 05:03 70 07/29/17 04:00 93 Nasal Cannula 2.00 07/29/17 04:00 69 07/29/17 03:05 98.2 76 16 121/58 (79) 93 07/29/17 03:04 68 07/29/17 02:00 69 07/29/17 01:00 76 07/29/17 00:15 74 07/29/17 00:13 98 Room Air 1.00 07/28/17 23:40 98.3 72 16 117/58 (77) 91 07/28/17 23:00 72 07/28/17 20:00 Room Air 2.00 98 07/28/17 20:00 93 Simple Mask 21 07/28/17 19:00 79 07/28/17 19:00 97.5 88 18 191/74 (113) 93 07/28/17 18:07 74 07/28/17 17:08 76 07/28/17 16:00 94 Nasal Cannula 2.00 07/28/17 15:00 97.7 74 16 127/60 (82) 94 07/28/17 15:00 73 Result Diagram: 07/28/17 0427 07/28/17 0427 Telemetry: NSR (1) Anxiety (2) Chronic anemia Plan: on iron supplement (3) S/P AVR (aortic valve replacement) Plan: on ASA, plavix BB, amiodarone ( dose reduced ) OOB, ambulate pulm toileting chest tube removed without difficulty diuresis (4) Severe aortic valve stenosis (5) Leukocytosis (leucocytosis) Plan: cultures pending / then de-escalate antibiotics BC neg, no growth in urine will dc IV antibiotics, Cipro po x 3 days Rosa M Snow Jul 29, 2017 12:48
[2017-07-29] MEDS: SENNOSIDES 8.6 MG TAB PO SCH ×2 (20:18→20:20)
[2017-07-29] MEDS: CIPROFLOXACIN 250 MG TAB PO SCH (20:19)
[2017-07-30] VITALS (28 sets, daily range): BP systolic 111–155; BP diastolic 56–70; PULSE 70–91; RESP 16; TEMP 97.4–98.1; O2SAT 94–98
[2017-07-30] MEDS: ACETAMINOPHEN/HYDROcodone 325 MG/5 MG TAB PO PRN ×4 (02:20→20:48)
[2017-07-30] MEDS: PANTOPRAZOLE SOD 40 MG DELAYED RELEASE TAB PO SCH (05:33)
[2017-07-30 05:49] LABS: HEMATOCRIT 25.6 % (35.0-46.0); MEAN CELL VOLUME 86.4 FL (80.0-100.0); MEAN CORPUSCULAR HEMOGLOBIN 29.6 PG (27.0-34.0); MEAN CORPUSCULAR HGB CONC 34.3 % (32.0-36.0); PLATELET COUNT 219 TH/MM3 (150-450); RED BLOOD COUNT 2.96 MIL/MM3 (4.00-5.30); REVIEW FLAG FINAL; WHITE BLOOD COUNT 8.4 TH/MM3 (4.0-11.0)
--- NOTE | 2017-07-30 05:55 | RADRPT ---
EXAM DATE/TIME: 07/30/2017 04:39 [facility] COMPARISON: CHEST SINGLE AP, July 28, 2017, 4:57. INDICATIONS : Shortness of breath, possible pneumothorax. MEDICAL HISTORY : Cardiovascular disease. SURGICAL HISTORY : CABG. ENCOUNTER: Subsequent ACUITY: 1 week PAIN SCORE: 0/10 LOCATION: Bilateral chest FINDINGS: A single AP semierect view of the chest was obtained and demonstrates interval movable of the small b ore right-sided chest tube. There is no visualized pneumothorax. Extensive subcutaneous emphysema is again noted of the right lateral chest wall. There is subcutaneous emphysema of the left lateral ches t wall with no visualized pneumothorax as well. The patient is again noted to be status post median s ternotomy and the heart size is at the upper limits of normal. Hazy opacity remains at both lung base s with blunting of the costophrenic angles. The patient is status post multilevel kyphoplasty. CONCLUSION: 1. Interval removal right sided chest tube with no pneumothorax. 2. Subcutaneous emphysema remains bilaterally 3. Hazy opacity remains at the lung bases as well as apparent small effusions. Flip Keen MD on July 30, 2017 at 5:52 Board Certified Radiologist. This report was verified electronically.
[2017-07-30 06:07] LABS: BICARBONATE 27.8 MEQ/L (21.0-32.0); MAGNESIUM 1.8 MG/DL (1.5-2.5); POTASSIUM 3.8 MEQ/L (3.5-5.1)
[2017-07-30] MEDS: INSULIN ASPART SUPPLEMENTAL SCALE SQ SCH ×4 (08:00→21:00)
[2017-07-30] MEDS: POLYETHYLENE GLYCOL 17 GM PKG PO SCH (09:00)
[2017-07-30] MEDS: DOCUSATE SODIUM 100 MG CAP PO SCH ×2 (09:00→20:48)
[2017-07-30] MEDS: MAGNESIUM HYDROXIDE SUSP 30 ML CUP PO SCH (09:00)
[2017-07-30] MEDS: CIPROFLOXACIN 250 MG TAB PO SCH (09:01)
[2017-07-30] MEDS: DIVALPROEX SODIUM DELAYED RELEASE 250 MG TAB PO SCH (09:01)
[2017-07-30] MEDS: CLOPIDOGREL 75 MG TAB PO SCH (09:02)
[2017-07-30] MEDS: MULTIVITAMINS/MINERALS THERAPEUTIC TAB PO SCH (09:02)
[2017-07-30] MEDS: POTASSIUM CHLORIDE 20 MEQ CONTROLLED RELEASE TAB PO SCH ×2 (09:02→20:48)
[2017-07-30] MEDS: AMIODARONE 200 MG TAB PO SCH ×2 (09:02→20:48)
[2017-07-30] MEDS: FUROSEMIDE 40 MG TAB PO SCH ×2 (09:03→17:42)
[2017-07-30] MEDS: ASPIRIN 81 MG CHEW TAB PO SCH (09:03)
[2017-07-30] MEDS: METOPROLOL TARTRATE 25 MG TAB PO SCH ×2 (09:03→20:48)
[2017-07-30] MEDS: SODIUM CHLORIDE 0.9% FLUSH 10 ML FLUSH IV FLUSH SCH ×2 (09:04→20:49)
[2017-07-30] MEDS: UMECLIDINIUM 62.5 MCG/VILANTEROL 25 MCG INHALER INH SCH (09:04)
[2017-07-30] MEDS ORDERED: MAGNESIUM SULFATE 1 GM PREMIX 100 ML IV ONE (09:45)
[2017-07-30] MEDS ORDERED: POTASSIUM CHLORIDE 20 MEQ CONTROLLED RELEASE TAB PO ONE (09:45)
[2017-07-30] MEDS ORDERED: HYDROCORTISONE 1% CREAM 30 GM TOPICAL ONE (10:00)
[2017-07-30] MEDS ORDERED: diphenhydrAMINE HCL 25 MG CAP PO ONE (10:00)
[2017-07-30] MEDS ORDERED: methylPREDNISolone SOD SUCC 125 MG/2 ML VIAL IV PUSH ONE (11:00)
[2017-07-30] MEDS ORDERED: FAMOTIDINE 20 MG/2 ML VIAL IV PUSH ONE (11:00)
[2017-07-30] MEDS: FERROUS SULFATE 325 MG (65 MG ELEMENTAL IRON) TAB PO SCH ×2 (11:01→16:22)
--- NOTE | 2017-07-30 16:00 | PD.CAR.PN ---
CVT Progress Note Subjective/Hospital Course: 76/ female hx of 10month h/o progressive SOB with minimal exertion. Echo revealed sever with rheumatic appearing leaflets ( LEATHA 0.57) , Cardiac cath revealed normal coronaries PMH: anemia, anxiety, carotid bruit, fatigue, GERD, migraines 07/25/17 Doing well, no complaints 07/26/17 c/o some dyspnea this morning No complaints currently Small air leak from chest tube 07/27 pig tail cath inserted right upper chest , + sub q emphysema right and left chest wall CXR noted small right apical PTX mediastinal chest tube removed , OOB ambulate on po amiodarone , back in NSR transfer to stepdown unit had low grade temp, BC UA pending, on broad spectrum antibiotics dc palencia cath and CVC line 07/28 pt feels fair, WBC improved, await cultures to de-escalate antibiotics cxr noted no PTX , still has some subq emphysema on cxr improving , continue diuresis / +8kg continue pulm toileting, nebs ezpap acapella transfer to stepdown unit suction reduced to 20cm on chest tube 07/29 no air leak in chest tube, dc without difficulty on nasal cannula , had some nausea this am, BC neg to date will dc Azactam, has small nonraised rash on back , await urine culture amiodarone dose reduced 07/30 multiforme rash to chest and back all antibiotics dc, plaxix on hold pepcid , benadryl and solumedrol x 4 doses Objective: GENERAL: SKIN: Warm and dry.sternal inciisojn intact , incision intact right groin multiform rash to chest and trunk HEAD: Normocephalic. EYES: No scleral icterus. No injection or drainage. NECK: Supple, trachea midline. No JVD or lymphadenopathy. CARDIOVASCULAR: Regular rate and rhythm without murmurs, gallops, or rubs. RESPIRATORY: Breath sounds equal bilaterally. No accessory muscle use. GASTROINTESTINAL: Abdomen soft, non-tender, nondistended. MUSCULOSKELETAL: No cyanosis, or edema. BACK: Nontender without obvious deformity. No CVA tenderness. Vital Signs Date Time Temp Pulse Resp B/P (MAP) Pulse Ox O2 Delivery O2 Flow Rate FiO2 07/30/17 15:00 80 07/30/17 15:00 97.5 77 16 117/56 (76) 95 07/30/17 14:00 78 07/30/17 13:00 85 07/30/17 12:00 84 07/30/17 11:00 98.0 78 16 127/60 (82) 95 07/30/17 11:00 90 07/30/17 10:00 85 07/30/17 09:00 82 07/30/17 08:50 96 Nasal Cannula 2.00 07/30/17 08:00 88 07/30/17 07:00 97.6 79 16 123/58 (79) 96 07/30/17 07:00 81 07/30/17 06:10 81 07/30/17 05:20 74 07/30/17 04:19 97.4 82 152/68 (96) 98 07/30/17 04:00 76 07/30/17 03:46 73 07/30/17 02:00 70 07/30/17 01:35 72 07/30/17 00:06 71 07/29/17 23:51 76 07/29/17 23:40 97.7 72 114/56 (75) 99 07/29/17 22:00 80 07/29/17 21:00 82 07/29/17 20:42 98 Nasal Cannula 2.00 07/29/17 20:00 97.6 83 120/57 (78) 96 07/29/17 20:00 78 07/29/17 19:00 77 07/29/17 18:00 82 07/29/17 17:38 18 07/29/17 17:00 74 07/29/17 16:00 72 Labs: Laboratory Tests Test 07/30/17 05:14 White Blood Count 8.4 TH/MM3 (4.0-11.0) Red Blood Count 2.96 MIL/MM3 (4.00-5.30) Hemoglobin 8.8 GM/DL (11.6-15.3) Hematocrit 25.6 % (35.0-46.0) Mean Corpuscular Volume 86.4 FL (80.0-100.0) Mean Corpuscular Hemoglobin 29.6 PG (27.0-34.0) Mean Corpuscular Hemoglobin Concent 34.3 % (32.0-36.0) Red Cell Distribution Width 14.0 % (11.6-17.2) Platelet Count 219 TH/MM3 (150-450) Mean Platelet Volume 7.5 FL (7.0-11.0) Blood Urea Nitrogen 10 MG/DL (7-18) Creatinine 0.52 MG/DL (0.50-1.00) Random Glucose 92 MG/DL (74-106) Calcium Level 7.8 MG/DL (8.5-10.1) Magnesium Level 1.8 MG/DL (1.5-2.5) Sodium Level 131 MEQ/L (136-145) Potassium Level 3.8 MEQ/L (3.5-5.1) Chloride Level 96 MEQ/L (98-107) Carbon Dioxide Level 27.8 MEQ/L (21.0-32.0) Anion Gap 7 MEQ/L (5-15) Estimat Glomerular Filtration Rate 115 ML/MIN (>89) Result Diagram: 07/30/1751307/30/17513 (1) Anxiety (2) Chronic anemia Plan: on iron supplement (3) S/P AVR (aortic valve replacement) Plan: on ASA, plavix BB, amiodarone ( dose reduced ) OOB, ambulate pulm toileting chest tube removed without difficulty diuresis (4) Severe aortic valve stenosis (5) Leukocytosis (leucocytosis) Plan: cultures pending / then de-escalate antibiotics BC neg, no growth in urine will dc IV antibiotics, Cipro po x 3 days (6) Allergic reaction caused by a drug Rosa M Snow Jul 30, 2017 16:00
[2017-07-30] MEDS: FAMOTIDINE 20 MG/2 ML VIAL IV PUSH SCH (16:22)
[2017-07-30] MEDS: diphenhydrAMINE HCL 25 MG CAP PO SCH ×2 (16:22→23:32)
[2017-07-30] MEDS: methylPREDNISolone SOD SUCC 40 MG/1 ML VIAL IV PUSH SCH ×2 (16:23→23:32)
[2017-07-30] MEDS: SENNOSIDES 8.6 MG TAB PO SCH (20:49)
[2017-07-31] VITALS (17 sets, daily range): BP systolic 137–165; BP diastolic 62–70; PULSE 72–100; RESP 16–18; TEMP 97.8–98.4; O2SAT 94–100
[2017-07-31] MEDS: PANTOPRAZOLE SOD 40 MG DELAYED RELEASE TAB PO SCH (05:20)
[2017-07-31] MEDS: FAMOTIDINE 20 MG/2 ML VIAL IV PUSH SCH (05:20)
[2017-07-31] MEDS: methylPREDNISolone SOD SUCC 40 MG/1 ML VIAL IV PUSH SCH (05:20)
[2017-07-31] MEDS: diphenhydrAMINE HCL 25 MG CAP PO SCH (05:20)
[2017-07-31] MEDS: INSULIN ASPART SUPPLEMENTAL SCALE SQ SCH ×2 (08:00→11:48)
[2017-07-31] MEDS: MAGNESIUM HYDROXIDE SUSP 30 ML CUP PO SCH (09:00)
[2017-07-31] MEDS: POLYETHYLENE GLYCOL 17 GM PKG PO SCH (09:00)
[2017-07-31] MEDS: UMECLIDINIUM 62.5 MCG/VILANTEROL 25 MCG INHALER INH SCH (09:00)
[2017-07-31] MEDS: SODIUM CHLORIDE 0.9% FLUSH 10 ML FLUSH IV FLUSH SCH (09:00)
[2017-07-31] MEDS: ACETAMINOPHEN/HYDROcodone 325 MG/5 MG TAB PO PRN ×2 (09:43→13:26)
[2017-07-31] MEDS: POTASSIUM CHLORIDE 20 MEQ CONTROLLED RELEASE TAB PO SCH (09:43)
[2017-07-31] MEDS: DOCUSATE SODIUM 100 MG CAP PO SCH (09:43)
[2017-07-31] MEDS: DIVALPROEX SODIUM DELAYED RELEASE 250 MG TAB PO SCH (09:43)
[2017-07-31] MEDS: MULTIVITAMINS/MINERALS THERAPEUTIC TAB PO SCH (09:43)
[2017-07-31] MEDS: FUROSEMIDE 40 MG TAB PO SCH (09:44)
[2017-07-31] MEDS: AMIODARONE 200 MG TAB PO SCH (09:44)
[2017-07-31] MEDS: ASPIRIN 81 MG CHEW TAB PO SCH (09:44)
[2017-07-31] MEDS: METOPROLOL TARTRATE 25 MG TAB PO SCH (09:44)
[2017-07-31] MEDS: FERROUS SULFATE 325 MG (65 MG ELEMENTAL IRON) TAB PO SCH (11:48)
[2017-07-31] MEDS ORDERED: POTA-163 PO (13:08)
[2017-07-31] MEDS ORDERED: HYDR-3516 PO (13:08)
[2017-07-31] MEDS ORDERED: MEDR4PAK PO (13:08)
[2017-07-31] MEDS ORDERED: METO25TA3 PO (13:08)
[2017-07-31] MEDS ORDERED: ASPI81 PO (13:08)
[2017-07-31] MEDS ORDERED: DIPH25CA PO (13:08)
[2017-07-31] MEDS ORDERED: AMIO200T PO (13:08)
[2017-07-31] MEDS ORDERED: DOCU1CAP39 PO (13:08)
[2017-07-31] MEDS ORDERED: THERM PO (13:08)
[2017-07-31] MEDS ORDERED: FERR325T20 PO (13:08)
[2017-07-31] MEDS ORDERED: FURO1TAB60 PO (13:08)
--- NOTE | 2017-07-31 13:20 | HHI.DS ---
Discharge Summary Admission Date Jul 24, 2017 at 05:31 Discharge Date: Jul 31, 2017 Admitting Diagnosis Severe Symptomatic Aortic Stenosis. Mild Aortic Insufficiency Severe Peripheral Vascular Disease Calcified Aorta (1) Chronic anemia ICD Codes: D64.9 - Anemia, unspecified Status: Chronic (2) Severe aortic valve stenosis ICD Codes: I35.0 - Nonrheumatic aortic (valve) stenosis Status: Chronic (3) Leukocytosis (leucocytosis) ICD Codes: D72.829 - Elevated white blood cell count, unspecified Status: Acute (4) Allergic reaction caused by a drug ICD Codes: T78.40XA - Allergy, unspecified, initial encounter Status: Acute (5) S/P AVR (aortic valve replacement) Diagnosis: Secondary ICD Codes: Z95.2 - Presence of prosthetic heart valve Procedures 07/24 1. Mini-Sternotomy 2. Aortic Valve Replacement with a 21mm Mosaic Cinch II Tissue valve 3. Right Femoral Vein Cannulation for Bypass Brief History 76/ female hx of 10month h/o progressive SOB with minimal exertion. Echo revealed sever with rheumatic appearing leaflets ( LEATHA 0.57) , Cardiac cath revealed normal coronaries PMH: anemia, anxiety, carotid bruit, fatigue, GERD, migraines CBC/BMP: 07/30/17 0514 07/30/17 0514 Significant Findings Laboratory Tests Test 07/30/17 05:14 Red Blood Count 2.96 MIL/MM3 (4.00-5.30) Hemoglobin 8.8 GM/DL (11.6-15.3) Hematocrit 25.6 % (35.0-46.0) Calcium Level 7.8 MG/DL (8.5-10.1) Sodium Level 131 MEQ/L (136-145) Chloride Level 96 MEQ/L (98-107) Imaging Last Impressions Chest X-Ray 07/30/17 0600 Signed Impressions: Service Date/Time: July 04:39 - CONCLUSION: 1. Interval removal right sided chest tube with no pneumothorax. 2. Subcutaneous emphysema remains bilaterally 3. Hazy opacity remains at the lung bases as well as apparent small effusions. Flip Keen MD PE at Discharge GENERAL: SKIN: Warm and dry. incision intact and well approximated to mid sternum, and right groin HEAD: Normocephalic. EYES: No scleral icterus. No injection or drainage. NECK: Supple, trachea midline. No JVD or lymphadenopathy. CARDIOVASCULAR: Regular rate and rhythm without murmurs, gallops, or rubs. RESPIRATORY: Breath sounds equal bilaterally. No accessory muscle use diminished in bases . GASTROINTESTINAL: Abdomen soft, non-tender, nondistended. MUSCULOSKELETAL: No cyanosis, or edema. BACK: Nontender without obvious deformity. No CVA tenderness. Hospital Course 07/25/17 Doing well, no complaints 07/26/17 c/o some dyspnea this morning No complaints currently Small air leak from chest tube 07/27 pig tail cath inserted right upper chest , + sub q emphysema right and left chest wall CXR noted small right apical PTX mediastinal chest tube removed , OOB ambulate on po amiodarone , back in NSR transfer to stepdown unit had low grade temp, BC UA pending, on broad spectrum antibiotics dc palencia cath and CVC line 07/28 pt feels fair, WBC improved, await cultures to de-escalate antibiotics cxr noted no PTX , still has some subq emphysema on cxr improving , continue diuresis / +8kg continue pulm toileting, nebs ezpap acapella transfer to stepdown unit suction reduced to 20cm on chest tube 07/29 no air leak in chest tube, dc without difficulty on nasal cannula , had some nausea this am, BC neg to date will dc Azactam, has small nonraised rash on back , await urine culture amiodarone dose reduced 07/30 multiforme rash to chest and back all antibiotics dc, plaxix on hold pepcid , benadryl and solumedrol x 4 doses 07/31 rash improved to chest and back, no pruritis will continue with medrol dosepak ok to dc to rehab Pt Condition on Discharge: Good Discharge Disposition: Discharge to SNF Discharge Instructions DIET: Follow Instructions for: Heart Healthy Diet Activities you can perform: Shower Only-No Bath Activities to avoid: Strenuous Activity, Driving Additional Activity Instructio: no lifting > 8lbs or gallon of milk Follow up Referrals: Cardiology - 4 Weeks with Enrrique Landa MD PCP Follow-up - 2 Weeks with Grisel Grider M.d. Surgical - 2 Weeks with Rosa M Snow New Medications: Diphenhydramine (Diphenhydramine) 25 Mg Cap 25 MG PO Q12H PRN for ALLERGIES, #10 CAP 0 Refills Furosemide (Lasix) 40 Mg Tab 40 MG PO DAILY for edema , #7 TAB 1 Refill Methylprednisolone Dosepak (Medrol Dosepak) 4 Mg Dspk 4 MG PO DIRECTED, #1 DSPK 0 Refills Per Pharmacist direction Potassium Chloride ER (Potassium Chloride ER) 20 Meq Tab 20 MEQ PO DAILY for Electrolyte Replacement, #7 TAB 1 Refill Amiodarone (Amiodarone) 200 Mg Tab 200 MG PO Q12HR for heart rhythm, #28 TAB 0 Refills for heart rhythm, 2 weeks only, no refill Aspirin (Tgt Aspirin) 81 Mg Chw 81 MG PO DAILY for Blood Clot Prevention, #30 EA 2 Refills Docusate Sodium (Dok) 100 Mg Cap 100 MG PO DAILY for Constipation, #30 CAP 0 Refills Ferrous Sulfate (Ferosul) 325 Mg (65 Mg Iron) Tablet 325 MG PO BID@12,17 for anemia , #60 TAB 0 Refills Hydrocodone/Acetaminophen (Hydrocodone-Acetamin 5-325 mg) 5 Mg-325 Mg Tablet 1 TAB PO Q6H PRN for PAIN SCALE 1 TO 5, #30 TAB 0 Refills Metoprolol Tartrate (Metoprolol Tartrate) 25 Mg Tab 25 MG PO Q12HR for Blood Pressure Management, #60 TAB 2 Refills Multiple Vitamins W/ Minerals (Thera M Plus) 1 Tab 1 TAB PO DAILY for multi vitamin, #30 TAB 2 Refills Continued Medications: Divalproex DR (Divalproex DR) 250 Mg Tabdr 250 MG PO DAILY for Control Seizures, TAB 0 Refills Pantoprazole (Pantoprazole) 40 Mg Tab 40 MG PO DAILY for Reflux, TAB 0 Refills Umeclidinium-Vilanterol Inh (Anoro Ellipta Inh) 62.5-25 Mcg/Act Aero 1 PUFF INH DAILY for COPD, INHALER 0 Refills Discontinued Medications: Tqfiaznxfz-Yniziyirxsplc-Qczwzewq (Ixoqxpwags-Vslxibkbrmuag-Tyzzkfwu) 50-325-40 Mg Tab 1 TAB PO Q4H PRN for HEADACHE, TAB 0 Refills Do not exceed 6 tablets/day. Lorazepam (Lorazepam) 0.5 Mg Tab 0.5 MG PO DAILY PRN for ANXIETY, TAB 0 Refills Rosa M Snow Jul 31, 2017 13:20
[2017-07-31] MEDS ORDERED: PLAV75TA29 PO (13:58)
[2017-07-31] MEDS ORDERED: METOPROLOL TARTRATE 25 MG TAB PO SCH (21:00)
== END 2017-07-31 16:04 | DRG 219 ==
LOC: HSDI 05:31 → HCVI 14:17 → HCPC 07-28 16:43
PROVIDERS: ADMIT Thoracic Surgery (Cardiothoracic Vascular Surgery); ATTEND Thoracic Surgery (Cardiothoracic Vascular Surgery)
PROC: B246ZZ4 Ultrasonography of Right and Left Heart, Transesophageal (ICD-10-PCS; 2017-07-24)
PROC: 0T9B70Z Drainage of Bladder with Drainage Device, Via Natural or Artificial Opening (ICD-10-PCS; 2017-07-24)
PROC: 30233N1 Transfusion of Nonautologous Red Blood Cells into Peripheral Vein, Percutaneous Approach (ICD-10-PCS; 2017-07-24)
PROC: 02RF08Z Replacement of Aortic Valve with Zooplastic Tissue, Open Approach (ICD-10-PCS; principal; 2017-07-24 08:15)
PROC: 5A1221Z Performance of Cardiac Output, Continuous (ICD-10-PCS; 2017-07-24 08:15)
PROC: 0W9930Z Drainage of Right Pleural Cavity with Drainage Device, Percutaneous Approach (ICD-10-PCS; 2017-07-26)
DX: I06.0 Rheumatic aortic stenosis (principal); J96.01 Acute respiratory failure with hypoxia; J95.812 Postprocedural air leak; J95.811 Postprocedural pneumothorax; T81.82XA Emphysema (subcutaneous) resulting from a procedure, initial encounter; I73.9 Peripheral vascular disease, unspecified; I70.0 Atherosclerosis of aorta; Y83.8 Other surgical procedures as the cause of abnormal reaction of the patient, or of later complication, without mention of misadventure at the time of the procedure; F41.9 Anxiety disorder, unspecified; K21.9 Gastro-esophageal reflux disease without esophagitis; D64.9 Anemia, unspecified; R21 Rash and other nonspecific skin eruption; D72.829 Elevated white blood cell count, unspecified
CPT/HCPCS: 36430; 36600; 71010; 76937; 80048; 81001; 82805; 82948; 83735; 84100; 85014; 85025; 85027; 86850; 86900; 86901; 86920; 87015; 87040; 87070; 87086; 87102; 87116; 87205; 87206; 87449; 88305; 88311; 93005; 93318; 94002; 94150; 94640; 94664; 94667; 94668; J0131; J0282; J1644; J1815; J1885; J1956; J2001; J2150; J2250; J2405; J2920; J2930; J3010; J3370; J3475; J3480; J7050; J7060; J7120; P9016; P9045; P9047